=== PATIENT | female | born 1960 | race Caucasian/White ===

== ENCOUNTER → 2017-05-16 | Outpatient (CLI) | payer OTHER ==
[2017-05-16 18:24] LABS: ALT/SGPT 21 U/L (12-78); BLOOD UREA NITROGEN 12 mg/dl (7-18); BUN/CREATININE RATIO 15.3 (10-20); CALCIUM 8.8 mg/dl (8.5-10.1); CARBON DIOXIDE 29 mmol/L (21-32); CHLORIDE 107 mmol/L (98-107); CREATININE 0.81 mg/dl (0.60-1.20); GLUCOSE 112 mg/dl (70-99); SODIUM 139 mmol/L (136-145)
[2017-05-16 18:27] LABS: ALKALINE PHOSPHATASE 80 U/L (45-117); AST/SGOT 17 U/L (15-37); RHEUMATOID FACTOR 12.8 U/mL (0-15)
[2017-05-19 14:05] LABS: ANA TITER 1:40 TITER (<1:40)
== END | disposition home or self-care (01) ==
LOC: C.LABPVFM 11:23
PROVIDERS: ATTEND Family Medicine
DX: F11.20 Opioid dependence, uncomplicated (principal); M19.90 Unspecified osteoarthritis, unspecified site

== ENCOUNTER 2019-07-16 08:40 | Inpatient (IN) ==
--- OUTSIDE RECORDS SUMMARY | 2019-07-16 08:43 | External Medical Summary | Continuity of Care Document ---
:1960 Author Name Twyla Aguilera, Provider Address Unavailable Unavailable , Care Team Providers Name Role Phone Franchesca Lomeli Unavailable [email or web address] [place] Aguilera, Richar Unavailable [email or web address] Neli Aguilera, [email or web address] [place] Aguilera, RICHAR Unavailable Unavailable JR Willy HARDY, HOWARD Rodriguez Unavailable Unavailable Unavailable Unavailable Unavailable Problems Wrist drop (736.05) (M21.339) Palpitations (785.1) (R00.2) COPD exacerbation (491.21) (J44.1) Anxiety (300.00) (F41.9) COPD (chronic obstructive pulmonary disease) (496) (J44.9) Groin discomfort (789.09) (R10.30) Rheumatoid arthritis (714.0) (M06.9) Arthritis (716.90) (M19.90) Vitamin D deficiency (268.9) (E55.9) Wheezing (786.07) (R06.2) Cough (786.2) (R05) Need for hepatitis C screening test (V73.89) (Z11.59) Screening mammogram, encounter for (V76.12) (Z12.31) Screening for hyperlipidemia (V77.91) (Z13.220) Rash (782.1) (R21) Abnormal EKG (794.31) (R94.31) 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 Willy Quinteros Start: 31-Oct-2018 Quantity: 6 Refills: 0 predniSONE 20 MG Oral Tablet; TAKE 2 TABLETS DAILY WITH FOOD Willy Quinteros Start: 31-Oct-2018 Quantity: 10 Refills: 0 LORazepam 0.5 MG Oral Tablet; TAKE 1 TAB LET EVERY 4-6 HOURS NEEDED FOR ANXIETY Willy Quinteros Start: 31-Oct-2018 Quantity: 10 Refills: 0 Methadone HCl - 10 MG Oral Tablet; TAKE total of 95mgs maint anence dose Start: 12-Sep-2016 Refills: 0 Lisinopril 20 MG Oral Tablet; Take 1 tablet daily BondalaWilly wiseman i Start: 15-Oct-2015 Quantity: 1 90 Tablet Bottle Refills: 1 Combivent Respimat 20-100 MCG/ACT Inhala tion Aerosol Solution; 2 puffs daily as needed Willy Quinteros Start: 15-Oct-2015 Quantity: 1 4 GM Inhaler Refills: 3 Aspirin 81 MG TABS; TAKE 1 TABLET DAILY. NANCY Noble Start: 28-Jan-2016 Quantity: 90 Refills: 3 Procedures Procedures not documented Immunizations Influenza Comments:Declines 20 16 Family History Father Family history of lung cancer (V16.1) (Z80.1) Status: Active Family history of hypertension (V17.49) (Z82.49) Status: Act misael Family history of alcohol abuse (V61.41) (Z81.1) Status: Act misael Mother Family history of hypertension (V17.49) (Z82.49) Status: Act misael Family history of colon cancer (V16.0) (Z80.0) Status: Activ e Grandmother Family history of alcohol abuse (V61.41) (Z81.1) Status: Act misael uncle Family history of alcohol abuse (V61.41) (Z81.1) Status: Act misael Social History - Smoking Status Smoker. current status unknown Plan of Treatment Planned Observations Planned Goals not documented Results No Known Results Results not documented Encounters Appointment; Krystle Quinteros M.D. 31-Oct-2018 14:00 Encounter Diagnosis: Problem not documented Appointment; Krystle Quinteros M.D. 28-May-2018 14:45 Encounter Diagnosis: Problem not documented Appointment; Migdalia Goodrich M.D. 23-May-2018 8:40 Encounter Diagnosis: Problem not documented Appointment; Krystle Quinteros M.D. 18-Apr-2018 10:30 Encounter Diagnosis: Problem not documented Appointment; Richar Jacinto M.D. 08-Aug-2017 13:00 Encounter Diagnosis: Problem not documented
[2019-07-16] MEDS ORDERED: SODIUM CHLORIDE 0.9% 500 ML IV SCH (09:00)
[2019-07-16] MEDS ORDERED: ALBUT/IPRATROP 3MG/0.5MG NEB 3 ML VIAL NEB ONE (09:00)
[2019-07-16] MEDS ORDERED: ONDANSETRON INJ 2 MG/ML 2 ML VIAL IV STA (09:00)
[2019-07-16 09:32] LABS: Hematocrit (blood only) 43.1 % (37-47); Hemoglobin 14.7 g/dL (12.0-16.0); Mean Corpuscular Hemoglobin 30.9 pg (25-34); Mean Corpuscular Hgb Conc 34.1 g/dL (32-36); Mean Corpuscular Volume 90.5 fL (80-100); Mean Platelet Volume 9.7 fL (7.4-10.4); Platelet Count 227 K/uL (130-400); RDW Coefficient of Variation 13.4 % (11.5-14.5); Red Blood Count 4.76 M/uL (4.2-5.4); White Blood Count 22.17 K/uL (4.8-10.8)
--- NOTE | 2019-07-16 09:33 | XRay Report ---
XR chest 1V portable CLINICAL HISTORY: Weakness. Cough. Chest pain. COMPARISON STUDY: No previous studies for comparison. FINDINGS: Lung volumes are normal. There is no pneumothorax or pleural effusion. Left basilar airspac e opacity is present. There may be minimal left midlung opacity. Right lung is clear. Cardiac size is within normal limits. There is levoscoliosis of the thoracic spine. A 3.6 cm right paratracheal dens ity is noted. Patient is mildly rotated. IMPRESSION: 1. Left basilar opacity suggestive of pneumonia. PA and lateral chest radiographs in one month to ens ure resolution are recommended. 2. 3.6 cm right paratracheal density. This may be artifactual/related to patient rotation. However, t his should be assessed on subsequent chest radiograph to exclude mediastinal abnormality. Electronically signed by: Miguel Chavez M.D. 07/16/2019 9:31 AM
[2019-07-16 09:53] LABS: Basophils # (auto) 0.01 K/uL (0-0.2); Eosinophils # (auto) 0.01 K/uL (0-0.5); Immature Granulocytes # (auto) 0.08 K/uL (0.00-0.02); Immature Granulocytes % (auto) 0.4 %; Lymphocytes # (auto) 3.29 K/uL (1.2-3.4); Lymphocytes % (auto) 14.8 %; Monocytes # (auto) 1.86 K/uL (0.11-0.59); Monocytes % (auto) 8.4 %; Neutrophils # (auto) 16.92 K/uL (1.4-6.5); Neutrophils % (auto) 76.4 %
[2019-07-16 09:59] LABS: Alanine Aminotransferase 18 U/L (12-78); Albumin Level 3.7 gm/dl (3.4-5.0); Aspartate Aminotransferase 18 U/L (15-37); BUN Creatinine Ratio 14.5 (10-20); Blood Urea Nitrogen 11 mg/dl (7-18); Calcium 9.2 mg/dl (8.5-10.1); Carbon Dioxide 31 mmol/L (21-32); Chloride 101 mmol/L (98-107); Est GFR (African American) 97.3; Est GFR (Non-African American) 83.9; Glucose 131 mg/dl (70-99); Potassium 3.9 mmol/L (3.5-5.1); Sodium 137 mmol/L (136-145)
[2019-07-16 10:09] LABS: Albumin Globulin Ratio 0.9 (0.9-2); Alkaline Phosphatase 64 U/L (45-117); Bilirubin,Total 0.6 mg/dl (0.2-1); Creatine Kinase 89 U/L (26-192); Globulin 4.1 gm/dl (2.5-4.0); Thyroid Stimulating Hormone 0.378 uIu/ml (0.300-4.500); Total Protein 7.8 gm/dl (6.4-8.2); Troponin I < 0.015 ng/ml (0-0.045)
[2019-07-16] MEDS ORDERED: IOVERSOL 100ml IV PRN (10:47)
--- NOTE | 2019-07-16 10:55 | CT Scan Report ---
CT head/brain wo con CLINICAL HISTORY: 58 years-old Female presenting with Pt c/o headache, emesis. TECHNIQUE: Multidetector CT imaging of the head was performed without the use of intravenous contrast . IV contrast: None. One or more dose lowering techniques were used consistent with the principles of ALARA (as low as reasonably achievable), including automatic exposure control, mA or kV adjustment t o individual patient size, and/or use of iterative reconstruction. COMPARISON: None. CT DOSE (mGy.cm): The estimated cumulative dose is 614.27 mGy.cm. 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 Ventricles and sulci normal in size. No hemorrhage. Brain parenchyma normal in appearance with preser eagle calvert-white differentiation. No acute territorial infarct. No mass effect or midline shift. No ext ra-axial fluid collection. Paranasal sinuses and mastoid air cells clear. Calvarium intact. IMPRESSION: 1. No acute intracranial abnormality. Electronically signed by: Carlos Luciano M.D. 07/16/2019 10:53 AM
--- NOTE | 2019-07-16 11:12 | CT Scan Report ---
ABDOMEN AND PELVIS CT WITH IV CONTRAST CT DOSE: 356.06 mGy.cm HISTORY: Pt c/o emesis TECHNIQUE: Multiaxial CT images of the abdomen and pelvis were performed following the use of intrave nous contrast. A dose lowering technique was utilized adhering to the principles of ALARA. COMPARISON STUDY: None. FINDINGS: Patchy areas of consolidation and tree-in-bud opacity seen within the left lower lobe. Ther e are also patchy groundglass opacities within the right lung base. Findings likely represent a pneum onia could be due to aspiration. There is partial opacification of the left lower lobe bronchi. No pn eumoperitoneum. No pneumatosis. No suspicious lytic or blastic osseous lesions. Calcified periportal lymph nodes are noted. The liver, gallbladder, pancreas, and right adrenal gland are unremarkable. A 1.9 cm hypodense lesion within the spleen. This favors a benign lesion. No hydronephrosis. Punctate s tone within the right kidney. A 2.1 cm hypodense lesion within the upper pole of the right kidney. Th is does not clearly represent a simple cyst. Additional subcentimeter hypodense lesions within the ki dneys are technically too small to characterize. No retroperitoneal lymphadenopathy. Soft tissue and fat-containing 3.8 cm left adrenal gland mass. This is consistent with a myelolipoma. Calcified plaqu e within the normal caliber abdominal aorta. The bladder is unremarkable. No bowel wall thickening or obstruction. Normal appendix. IMPRESSION: 1. No bowel wall thickening or obstruction. 2. Normal appendix. 3. Patchy bibasilar densities most pronounced within the left lower lobe with partial opacification o f the left lower lobe bronchi. This is consistent with a pneumonia is likely secondary to aspiration. 4. Right-sided nephrolithiasis. No hydronephrosis. 5. A 2.1 cm exophytic hypodense lesion within the right kidney. This does not clearly represent a sim ple cyst by CT criteria. Consider follow-up nonemergent ultrasound for further evaluation. 6. A 3.8 cm left adrenal myelolipoma. Electronically signed by: Yosi Perez M.D. 07/16/2019 11:11 AM
[2019-07-16] MEDS ORDERED: LEVOFLOXACIN/D5W 750 MG/150 ML BAG IV STA (11:20)
[2019-07-16] MEDS ORDERED: AZTREONAM 2,000 MG in DEXTROSE 5% 100 ML IV STA (11:20)
[2019-07-16] MEDS ORDERED: ALBUTEROL HFA 8 GM INHALER INH ONE (11:26)
[2019-07-16] MEDS ORDERED: MAGNESIUM SULFATE / D5W 1 GM/100 ML BAG IV ONE (11:30)
[2019-07-16] MEDS ORDERED: methylPREDNISolone 60 MG in SYRINGE 1 ML IV STA (11:31)
[2019-07-16] MEDS ORDERED: IPRATROPIUM BROMIDE NEB SOLN 0.02% 2.5 ML VIAL INH PRN (12:19)
[2019-07-16] MEDS ORDERED: ALBUTEROL 0.083% NEBU SOLN 3 ML VIAL INH PRN (12:19)
[2019-07-16] MEDS ORDERED: ALUMINUM/MAGNESIUM SUSP 30 ML UDC PO PRN (12:25)
[2019-07-16] MEDS ORDERED: ACETAMINOPHEN 325 MG TAB PO PRN (12:25)
[2019-07-16] MEDS ORDERED: MAGNESIUM HYDROXIDE SUSP 30 ML UDC PO PRN (12:25)
[2019-07-16] MEDS ORDERED: POLYETHYLENE (MIRALAX) 17 GM PACK PO PRN (12:25)
[2019-07-16] MEDS ORDERED: ZOLPIDEM TARTRATE 5 MG TAB PO PRN (12:25)
[2019-07-16] MEDS ORDERED: FAMOTIDINE 20MG/5ML IV PUSH IV STA (12:25)
[2019-07-16] MEDS ORDERED: AZITHROMYCIN 500 MG in DEXTROSE 5% 250 ML IV SCH (12:30)
[2019-07-16] MEDS ORDERED: PROMETHAZINE HCL 6.25 MG in SODIUM CHLORIDE 0.9% 50 ML IV PRN (12:31)
[2019-07-16] MEDS ORDERED: IPRATROPIUM BROMIDE/ALBUTEROL respimat INH INH PRN (12:33)
[2019-07-16] MEDS ORDERED: LORazepam 0.5 MG TAB PO PRN (12:40)
--- NOTE | 2019-07-16 12:47 | History & Physical Report ---
Date of Service July 16, 2019 Assessment & Plan (1) Acute respiratory failure with hypoxia: Plan Admit patient to telemetry Start patient on bronchodilators, Xopenex/Atrovent 0.63 inhalation nebulizer 4 times daily Start patient on steroids, Solu-Medrol low-dose due to pneumonia, 20 mg IV every 8 hours Chest imaging reviewed, showed no active pneumonia but likely bacterial bronchitis EKG reviewed, no QTc prolongation, will start levofloxacin for pneumonia Add probiotic for C. difficile prevention Pulmonary consultation if no improvement as needed Pepcid for GI prophylaxis Heparin subcu for DVT prophylaxis Patient will need pulmonary function test in 6 weeks after resolution Incidental finding of 3.6 cm right paratracheal density, as per radiologist could be artifact but giving her prolonged smoking history we will order CT scan chest with contrast to better evaluate the mediastinum in a.m., at this point no clinical stigmata suspecting pulmonary embolism so will do mediastinum lymphadenopathy protocol rather than pulmonary embolism protocol Incidental finding of 2.1 cm exophytic hypodense lesion in right kidney does not appear to be a simple cyst, follow-up with an ultrasound for further evaluation is indicated as it might be a source of metastatic lesion mentioned above in the mediastinal 3.6 cm density Incidental finding of 3.8 cm left adrenal myelo lipoma We will order renal ultrasound to investigate the above mentioned abnormalities and CT chest with contrast in a.m. (2) COPD exacerbation: As above (3) Left lower lobe pneumonia: Levofloxacin 750 mg IV daily Follow-up QTC every 2 to 3 days Lactobacillus to prevent C. difficile Ordered urine Legionella Sputum culture Blood culture Influenza PCR, will not empirically treat flu at this point due to slightly different stigmata for flu infection, likely her leukocytosis (4) Tobacco abuse: Counseled regarding quitting, she is willing to quit (5) Essential hypertension: Started lisinopril 10 mg p.o. daily, although I doubt it will be sufficient to control her blood pressure Consider adjusting her home meds by adding possible Norvasc if blood pressure remains (6) Anxiety: Continue Ativan as needed anxiety History of Present Illness 58 years old female with past medical history of COPD not on home oxygen, rheumatoid arthritis, tobacco abuse and essential hypertension, also she had history of cervical cancer and the 1990s status post removal. She presented to the hospital today with productive cough with whitish and yellowish sputum x4 days. Associated with fever, nausea, vomiting. Patient vomited 3-4 times a day no hematemesis. Feeling tired fatigue, also has not runny nose. No one else sick in the family, denies any sick contact. In the ED she was found to have a white blood cell count of 22. Patient was advised to be admitted for pneumonia treatment as her chest x-ray showed left lower lobe pneumonia. Initially she wanted to go home but the moment she was taking off oxygen her O2 sat dropped to 80 on room air. Then she decided to stay. Primary Care Provider: Krystle Quinteros MD Allergies Allergy/AdvReac Type Severity Reaction Status Date / Time bee venom protein (honey bee) Allergy Swelling Unverified 07/16/19 09:34 of Lip/Tongue/Throat Penicillins Allergy Hives Unverified 07/16/19 09:34 Home Medications Home Medications Medication Instructions Recorded Confirmed Type ipratropium-albuterol [Combivent 2 puff INHALATION BID PRN 08/07/18 07/16/19 History Respimat] aspirin 325 mg PO DAILY 07/16/19 07/16/19 History lisinopril 10 mg PO DAILY 07/16/19 07/16/19 History Past Med/Surg History Medical History Von Willebrand disease Epistaxis (Acute) Social History Preferred Language: Tristanian Communication Ability: Effective Beliefs That Will Affect Care: None Current Living Situation: Alone Other Information That Helps Us Care for You: No Feels Safe at Home: Yes Safety Concerns: Feels Safe At This Time Smoking Status: Current every day smoker Tobacco Type: cigarettes ; Cigarettes Per Day: 20 ; Hx Alcohol Use: No Hx Substance Use: No Review of Systems Review of Systems: Review of system Constitutional: Positive for fever chills and fatigue Eyes: no blurring of vision / no eye pain / no discharge / no redness ENT: no hearing loss / no epistaxis /no swallowing problems Respiratory: Positive for productive cough and wheezing and shortness of breath Cardiovascular: no Chest pain / no lower extremity edema / no palpitation Abdomen: no pain / no nausea / no vomiting / no constipation Musculoskeletal: no joint pain / no muscle pain / no joint swelling Genitourinary: no dysuria / no incontinence / no urinary retention Neurologic: no focal weakness / no numbness/tingling / no ataxia Psychiatric: no depression symptoms / no anxiety / no insomnia Endocrine: no excessive thirst / no excessive urination Hematologic: no abnormal bleeding / no bruising / no LN swelling Skin: No rash / no pallor Physical Exam Physical Exam: Physical examination General patient appears to be comfortable, not in acute distress HEENT: Atraumatic , normocephalic /no jaundice /no pallor /anicteric /no dry mucous membrane /normal external ear inspection Neck: Supple /no swelling /central trach Heart: S1/S2 normal/regular rate and rhythm/no gallop /no rub /no murmur Lungs: Decreased air entry bilaterally, generalized wheezing both lung brower, scattered rhonchi, no chest wall tenderness Abdomen: Soft/nontender/no guarding/no rebound/no organomegaly/no pulsatile mass Musculoskeletal: No swelling/no edema/no tenderness/normal range of motion Neuro exam: Awake alert oriented 3/cranial nerves II through XII appear to be intact/sensation intact/moves all extremities/no abnormal movements Psychiatric evaluation: No depressed mood/normal affect Skin: No rash on exposed skin area/no erythema Extremity: Normal pulse/no pitting edema/no clubbing or cyanosis Endocrine/lymphatic: No obvious lymphadenopathy /no lymphedema Results & Data Vital Signs (Past 12 Hours) Vital Signs Temp Pulse Pulse Resp BP BP Pulse Ox 07/16/19 12:25 87 20 93 07/16/19 11:35 89 L 07/16/19 11:30 81 L 07/16/19 11:29 90 16 155/78 H 87 L 07/16/19 10:30 86 20 170/85 H 98 07/16/19 09:42 22 96 07/16/19 08:42 37.0 C 80 20 189/97 H 85 L Code Status & VTE Plan VTE Prophylaxis Plan VTE Prophylaxis will be ordered: Yes PG Care Time/CCT Total # of Minutes Spent Total Time Spent with Patient: 35 minutes total time spent is greater than 50% in coordination of care (as documented) at patient's floor/unit and/or counseling patient/family discussion of care with nursing staff
[2019-07-16] MEDS ORDERED: OPTIRAY 320 125ml IV PRN (14:32)
--- NOTE | 2019-07-16 14:54 | CT Scan Report ---
CT angio chest PE protocol CLINICAL HISTORY: 58 years-old Female presenting with cough, atypical chest pain, weakness, clinical concern for pulmonary embolus. TECHNIQUE: Multidetector CT angiography of the chest was performed after administration of intravenou s contrast. 3-D volumetric and/or maximum intensity projection (MIP) images were subsequently reconst ructed for review. IV contrast: 120 mL of Optiray 320. One or more dose lowering techniques were used consistent with the principles of ALARA (as low as reasonably achievable), including automatic expos ure control, mA or kV adjustment to individual patient size, and/or use of iterative reconstruction. COMPARISON: Chest x-ray performed earlier the same day. CT DOSE (mGy.cm): The estimated cumulative dose is 293.08 mGy.cm. 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 Pulmonary vasculature: The study is adequate for assessment of the pulmonary vascular tree. No filling defect within the pul monary arteries to suggest embolus. Abnormal size of the main pulmonary artery. No flattening of the interventricular septum. No intracardiac filling defect. No reflux of contrast into the hepatic veins . Remaining chest: Soft tissues: Normal thyroid and thoracic inlet. Small bilateral hilar lymph nodes are suspected like ly reactive. Atherosclerosis of the aorta. Mild multichamber enlargement of the heart. Coronary arter y calcification. No pericardial or pleural effusion. Cyst suspected at the upper pole of the right ki dney. Low-density lesion in the spleen may represent a hemangioma or lymphangioma. Lungs and airways: No pneumothorax. Segmental and subsegmental debris in the lower lobe airways with bronchial wall thickening. Mild upper lobe predominant centrilobular emphysema. Extensive peribroncho vascular consolidation in the left lower lobe and to a minimal extent in the right lower lobe. Musculoskeletal: Degenerative changes of the spine. IMPRESSION: 1. Extensive bronchial debris and bronchial wall thickening in the lower lobes with peribronchovascu lar consolidation in the lower lobes, left greater than right. Findings highly concerning for aspirat ion and aspiration pneumonitis. Infection is not excluded. 2. Reactive bilateral hilar lymph nodes. 3. Mild cardiomegaly. 4. No acute pulmonary embolus. Electronically signed by: Carlos Luciano M.D. 07/16/2019 2:52 PM
[2019-07-16] MEDS ORDERED: PATIENT'S HEIGHT AND/OR WEIGHT NEEDED SCH (15:00)
[2019-07-16 15:08] LABS: Influenza A virus by PCR Neg for Influ A (Neg); Influenza B virus by PCR Neg for Influ B (Neg)
[2019-07-16] MEDS: D5W AND NSS 1,000 ML IV SCH (15:27)
[2019-07-16] MEDS: LACTOBACILLUS ACIDOPHILUS 1 GM PACK PO SCH (15:38)
--- NOTE | 2019-07-16 16:22 | Ultrasound Report ---
EXAMINATION: RENAL ULTRASOUND CLINICAL HISTORY: Complex right renal cyst COMPARISON STUDY: CT scan dated 07/16/2019 FINDINGS: The right kidney measures 11.8 cm. The left kidney measures 11.3 cm. There is no evidence of hydronephrosis. There is a minimally complex upper pole right renal cyst measuring 24 mm containi ng a single septation. Incidental note is made of a 2 cm splenic cyst. No bladder abnormalities are visualized. Bilateral ureteral jets were visualized. IMPRESSION : 1. Mildly complex 24 mm upper pole right renal cyst containing a single septation 2. No evidence of hydronephrosis 3. 2 cm splenic cyst Electronically signed by: Mark Riggs M.D. 07/16/2019 4:21 PM
[2019-07-16] MEDS ORDERED: Nursing to Pharmacy Communication ONE (16:32)
[2019-07-16] MEDS ORDERED: ENOXAPARIN INJ 40 MG/0.4 ML SYR SQ SCH (21:00)
[2019-07-16] MEDS: methylPREDNISolone 20 MG in SYRINGE 0 ML IV SCH (21:42)
[2019-07-17] MEDS: methylPREDNISolone 20 MG in SYRINGE 0 ML IV SCH (03:30)
[2019-07-17] MEDS ORDERED: lisinopriL 10 MG TAB PO SCH (09:00)
[2019-07-17] MEDS ORDERED: ASPIRIN 325 MG ECTAB PO SCH (09:00)
[2019-07-17] MEDS: LACTOBACILLUS ACIDOPHILUS 1 GM PACK PO SCH ×3 (09:35→14:19)
[2019-07-17] MEDS: ALBUT/IPRATROP 3MG/0.5MG NEB 3 ML VIAL NEB SCH ×3 (11:04→19:25)
[2019-07-17] MEDS ORDERED: METHADONE ORAL SOLN 2 MG/ML PO SCH ×2 (11:30→12:00)
[2019-07-17] MEDS ORDERED: predniSONE 20 MG TAB PO SCH (11:30)
[2019-07-17] MEDS ORDERED: METHADONE PO SCH (12:00)
[2019-07-17] MEDS: CLINDAMYCIN HCL 150 MG CAP PO SCH ×2 (12:13→18:39)
[2019-07-17] MEDS ORDERED: LEVOFLOXACIN/D5W 750 MG/150 ML BAG IV SCH (13:00)
[2019-07-17] MEDS: D5W AND NSS 1,000 ML IV SCH (14:18)
[2019-07-17] MEDS ORDERED: BUDESONIDE/FORMOTEROL FUMARATE 160/4.5 60 PUFFS/INHALER INH SCH (16:15)
[2019-07-17] MEDS ORDERED: LACTOBACILLUS ACIDOPHILUS (FLORANEX) TAB PO SCH (17:00)
--- NOTE | 2019-07-17 17:20 | Discharge Summary ---
Date of Service July 17, 2019 Admission HPI Per Admitting Provider 58 years old female with past medical history of COPD not on home oxygen, rheumatoid arthritis, tobacco abuse and essential hypertension, also she had history of cervical cancer and the 1990s status post removal. She presented to the hospital today with productive cough with whitish and yellowish sputum x4 days. Associated with fever, nausea, vomiting. Patient vomited 3-4 times a day no hematemesis. Feeling tired fatigue, also has not runny nose. No one else sick in the family, denies any sick contact. In the ED she was found to have a white blood cell count of 22. Patient was advised to be admitted for pneumonia treatment as her chest x-ray showed left lower lobe pneumonia. Initially she wanted to go home but the moment she was taking off oxygen her O2 sat dropped to 80 on room air. Then she decided to stay. Primary Care Provider: Krystle Quinteros MD Admission Exam Per Admitting Provider General patient appears to be comfortable, not in acute distress HEENT: Atraumatic , normocephalic /no jaundice /no pallor /anicteric /no dry mucous membrane /normal external ear inspection Neck: Supple /no swelling /central trach Heart: S1/S2 normal/regular rate and rhythm/no gallop /no rub /no murmur Lungs: Decreased air entry bilaterally, generalized wheezing both lung brower, scattered rhonchi, no chest wall tenderness Abdomen: Soft/nontender/no guarding/no rebound/no organomegaly/no pulsatile mass Musculoskeletal: No swelling/no edema/no tenderness/normal range of motion Neuro exam: Awake alert oriented 3/cranial nerves II through XII appear to be intact/sensation intact/moves all extremities/no abnormal movements Psychiatric evaluation: No depressed mood/normal affect Skin: No rash on exposed skin area/no erythema Extremity: Normal pulse/no pitting edema/no clubbing or cyanosis Endocrine/lymphatic: No obvious lymphadenopathy /no lymphedema Principal Diagnosis COPD exacerbation Aspiration pneumonia Complex right renal cyst Left adrenal myelolipoma Hypertension Discharge Exam Constitutional well developed and + malnourished; no acute distress Eyes PERRL, conjunctivae normal, anicteric sclerae ENMT external ear and nose normal, oropharynx normal Neck normal visual inspection and trachea midline Respiratory normal respiratory effort and + cough; no respiratory distress, no labored breathing, no retractions and does not use accessory muscles Auscultation: + crackles (left lower lobe); no wheezes Gastrointestinal (Abdomen) normal bowel sounds, soft, nontender, no hepatosplenomegaly Musculoskeletal no cyanosis or clubbing, extremities motor strength 5/5 Skin no rashes, warm and dry Neurologic moves all extremities and awake; no focal motor deficits Motor/Sensory: no sensory deficit Psychiatric A+Ox3, euthymic affect Discharge Data Allergies Allergy/AdvReac Type Severity Reaction Status Date / Time bee venom protein (honey bee) Allergy Swelling Unverified 08/01/19 11:35 of Lip/Tongue/Throat Penicillins Allergy Hives Unverified 08/01/19 11:35 Consultations 07/16/19 11:30 ED Decision to Admit Stat Ordered Studies 07/16/19 09:00 CT abd pelvis IV con only Stat CT head/brain wo con Stat 07/16/19 11:36 CT angio chest PE protocol Stat 07/16/19 14:54 US renal/blad retro comp Routine Hospital Course (1) Acute respiratory failure with hypoxia: Patient admitted overnight due to below conditions The following day she was on room air maintaining saturations. Feels well enough for discharge. You were diagnosed with COPD exacerbation and aspiration pneumonia secondary to vomiting. Treated with antibiotics, steroids and nebulizer treatment. Continue prednisone for total 5 days as prescribed. Clindamycin (antibiotic) to cover for aspiration pneumonia. , wash your mouth out after this medication. (2) Left lower lobe pneumonia: CT suspicious for aspiration pneumonia which fits with her history of vomiting due to probable viral gastroenteritis which has now resolved Will treat with clindamycin due to penicillin allergy (3) COPD exacerbation: No wheezing on exam No prior maintenance inhalers. No exacerbations in last 12 months Prednisone prescribed for 5 days Recommend taking combivent inhaler four times a day for the next 2-3 days then as needed. Patient prescribed Symbicort inhaler 2 puffs twice a day at least for the next 5 days. Maintenance inhaler to be determined as outpatient (4) Tobacco abuse: Counseled regarding quitting, she is willing to quit (5) Essential hypertension: Started lisinopril to 20mg daily due to elevated blood pressure. Continues to be elevated but no need for continued inpatient stay (6) Anxiety: Continue Ativan as needed anxiety Total Time Total Time Spent Total Time Spent (In Minutes): 40 Total Time Includes: Examination of the Patient, Discharge Planning and Medication Reconciliation Discharge Plan Discharge Items Patient Disposition: Home - Self-Care Reason For Visit: ACUTE HYPOXIC RESPIRATORY FAILURE Discharge Diagnosis: COPD exacerbation Aspiration pneumonia Complex right renal cyst Left adrenal myelolipoma Hypertension Condition on Discharge: Fair Activity: Resume your previous activity Non-emergency contact: Primary Care Provider Call non-emergency contact if: you have any medication questions and your symptoms worsen Follow-up/Referrals: Krystle Quinteros MD [Primary Care Provider] - Diet: Regular Addtl Attending Provider Instructions: You were diagnosed with COPD exacerbation and aspiration pneumonia secondary to vomiting. Treated with antibiotics, steroids and nebulizer treatment. Continue prednisone for total 5 days as prescribed. Clindamycin (antibiotic) to cover for aspiration pneumonia. Recommend taking combivent inhaler four times a day for the next 2-3 days then as needed. Take Symbicort 2 puffs twice a day for the next 5 days, wash your mouth out after this medication. Lisinopril was increased from 10->20mg daily due to elevated blood pressure. Follow up with your PCP in the next 1-2 weeks. Pending Studies at Discharge: No Stand-Alone Forms: My [facility], Opioid Pain Management Medications and DC Order Prescriptions: New aspirin 81 mg tablet,delayed release (DR/EC) 81 mg PO DAILY Qty: 30 RF: 0 Changed Combivent Respimat 20-100 mcg/actuation Mist 2 puff INHALATION QID PRN (Reason: Shortness Of Breath Or Wheezing) Qty: 0 RF: 0 Discontinued aspirin 325 mg Tablet 325 mg PO DAILY RF: 0 lisinopril 10 mg Tablet 10 mg PO DAILY RF: 0 No Action ondansetron HCl [Zofran] 4 mg tablet 4 mg PO QID PRN (Reason: nausea and vomiting) Qty: 10 RF: 0 lisinopril 10 mg tablet 20 mg PO DAILY Qty: 30 RF: 2 lorazepam 0.5 mg tablet 0.5 mg PO Q4H PRN (Reason: anxiety) RF: 0 methadone 40 mg tablet,soluble 95 mg PO DAILY RF: 0 albuterol sulfate [ProAir HFA] 90 mcg/actuation HFA aerosol inhaler 1 puffs INH Q6H PRN (Reason: shortness of breath or wheezing) Qty: 6.7 RF: 0 amlodipine [Norvasc] 5 mg Tablet 10 mg PO QAM Qty: 30 RF: 0 famotidine 20 mg Tablet 20 mg PO QAM Qty: 10 RF: 0 Floranex 100 million cell Granules In Packet 1 g PO TIDM Qty: 90 RF: 0 Discharge Orders: Discharge Order (Routine); Ordered 07/17/19 Ordered By: Fan Bahena Admission Data Admit Date/Time: 07/16/19 12:24 Attending Provider: Fan Bahena Admit Provider: Alessandra Tomlin Primary Care Provider: Krystle Quinteros Other Providers: Alessandra Tomlin Other Interventions: Discharge Summary Assessment (RN) Last Done: 07/17/19 18:20 DC Date/Time DO NOT enter until pt leaves facility: 07/17/19 20:30
--- NOTE | 2019-07-17 17:25 | Emergency Department Note ---
Entered by Soheila Taylor acting as a scribe for Gm Win MD History of Present Illness General Chief complaint: Vomiting Stated complaint: VOMITING X2 DAYS, COUGH, FEVER Time Seen by Provider: 07/16/19 08:46 Source: patient History of Present Illness Provider complaint: cough and fever Onset (ago): day(s) 4 Location: head and chest Pain Consistency: + intermittent Maximum Pain Intensity: 7 Relieved By: + none Exacerbated By: + none Associated symptoms: + denies other symptoms, + cough, + headaches and + nause a/vomiting The patient is a 58 y/o female who presents to the emergency department for e valuation of intermittent cough and vomiting that began 4 days ago. The patient states that she has nausea, vomiting, cough with opaque sputum, and headache. She reports she is vomiting 5-6 time a day and has been unable to keep anything down resulting in dehydration with the most recent episode being 6 hours ago. The patient notes she has had a decrease in energy since prior to these symptoms, and reports she has a history of COPD. She denies diarrhea and any other symptoms. Home Medications Home Medications Medication Instructions Recorded Confirmed Type Combivent Respimat 2 puff INHALATION QID PRN #0 g 07/17/19 07/16/19 Rx aspirin 81 mg PO DAILY #30 tab 07/17/19 Rx budesonide-formoterol [Symbicort] 2 puff INHALATION BID PRN #6 gm 07/17/19 Rx clindamycin HCl 600 mg PO BID 6 Days #24 cap 07/17/19 Rx lisinopril 20 mg PO DAILY #0 tab 07/17/19 07/16/19 Rx methadone 95 mg 07/17/19 History prednisone 40 mg PO QAM #4 tab 07/17/19 Rx Allergies Allergy/AdvReac Type Severity Reaction Status Date / Time bee venom protein (honey bee) Allergy Swelling Unverified 07/16/19 09:34 of Lip/Tongue/Throat Penicillins Allergy Hives Unverified 07/16/19 09:34 Past Med/Surg History Medical History Von Willebrand disease Epistaxis (Acute) Social History Preferred Language: Japanese Communication Ability: Effective Beliefs That Will Affect Care: None Current Living Situation: Alone Feels Safe at Home: Yes Smoking Status: Current every day smoker Tobacco Type: cigarettes ; Cigarettes Per Day: 20 ; Hx Alcohol Use: No Hx Substance Use: No Review of Systems See HPI for pertinent positives & negatives. and A total of 10 systems reviewed and were otherwise negative Physical Exam Vital Signs Vital Signs - 24 hr 07/16/19 08:42 07/16/19 09:42 07/16/19 10:30 Temperature 98.6 F Temperature Source Oral Sepsis Recent Fever Within 48 Hours No Sepsis Action Taken by Nursing No Action Required Pulse Rate 80 Pulse Rate [Apical] 86 Respiratory Rate 20 22 20 Respiratory Effort / Characteristics Non-Labored Non-Labored Spontaneous Respiratory Depth Normal Blood Pressure 189/97 H Blood Pressure [Right Arm] 170/85 H Blood Pressure Mean 127 Blood Pressure Mean [Right Arm] 113 Pulse Oximetry 85 L 96 98 Oxygen Delivery Method Room Air Room Air Nebulizer 07/16/19 11:29 Temperature Temperature Source Sepsis Recent Fever Within 48 Hours Sepsis Action Taken by Nursing Pulse Rate Pulse Rate [Apical] 90 Respiratory Rate 16 Respiratory Effort / Characteristics Respiratory Depth Blood Pressure Blood Pressure [Right Arm] 155/78 H Blood Pressure Mean Blood Pressure Mean [Right Arm] 103 Pulse Oximetry 87 L Oxygen Delivery Method Room Air GENERAL: Awake, alert, well-appearing, in no acute distress HENT: Normocephalic, atraumatic. Oropharynx unremarkable. EYES: Normal conjunctiva. Sclera non-icteric. NECK: Supple. No nuchal rigidity. FROM. No JVD. RESPIRATORY: Bilateral wheezing present in all lung brower. CARDIAC: Regular rate, normal rhythm. Extremities warm and well perfused. Pulses equal. ABDOMEN: Soft, non-distended. No tenderness to palpation. No rebound or guarding. No masses. RECTAL: Deferred. MUSCULOSKELETAL: Chest examination reveals no tenderness. The back is symmetrical on inspection without obvious abnormality. There is no CVA tenderness to palpation. No joint edema. LOWER EXTREMITIES: Calves are equal size bilaterally and non-tender. No edema. No discoloration. NEURO: Normal sensorium. No sensory or motor deficits noted. SKIN: No rash or jaundice noted. Course 0847: Past medical records reviewed. The patient was evaluated in room B04. A complete history and physical exam was performed. 1126: The patient is interested in returning home. 1131: The patients O2 sat is low and she told the nurse she would like to stay. 1135: I [place] Guy Hernandez[place] [facility] [place] He will evaluate for further management. Administered Medications Discontinued Medications Acetaminophen (Tylenol) 650 mg PO Q4H PRN PRN Reason: Pain or Fever Stop: 08/15/19 12:24 Last Admin: 07/16/19 15:38 Dose: 650 mg Documented by: [id number] Albuterol (Duoneb) 12 ml NEB ONE ONE Stop: 07/16/19 09:01 Last Admin: 07/16/19 09:39 Dose: 12 ml Documented by: [id number] Albuterol (Ventolin Hfa) 2 puffs INH NOW ONE Stop: 07/16/19 11:27 Last Admin: 07/16/19 11:37 Dose: 2 puffs Documented by: [id number] Albuterol (Duoneb) 3 ml NEB Q4R BALDOMERO Stop: 08/16/19 10:59 Last Admin: 07/17/19 19:25 Dose: Not Given Documented by: [id number] Admin: 07/17/19 13:59 Dose: Not Given Documented by: [id number] Admin: 07/17/19 11:04 Dose: 3 ml Documented by: [id number] Aspirin (Ecotrin) 325 mg PO DAILY BALDOMERO Stop: 08/16/19 08:59 Last Admin: 07/17/19 09:35 Dose: 325 mg Documented by: [id number] Budesonide/Formoterol Fumarate (Symbicort 160mcg/4.5mcg) 2 puffs INH BID BALDOMERO Stop: 08/16/19 16:14 Last Admin: 07/17/19 18:39 Dose: 2 puffs Documented by: [id number] Clindamycin HCl (Cleocin) 450 mg PO Q8 BALDOMERO Stop: 07/24/19 10:59 Last Admin: 07/17/19 18:39 Dose: 450 mg Documented by: [id number] Admin: 07/17/19 12:13 Dose: 450 mg Documented by: [id number] Enoxaparin Sodium (Lovenox) 40 mg SQ Q24H BALDOMERO Stop: 08/15/19 20:59 Last Admin: 07/16/19 21:42 Dose: 40 mg Documented by: [id number] Famotidine (Pepcid 20mg Iv Push) 20 mg IV ONE STA Stop: 07/16/19 12:26 Last Admin: 07/16/19 14:00 Dose: 20 mg Documented by: [id number] Sodium Chloride (Nss) 500 mls @ 999 mls/hr IV .Q31M BALDOMERO Stop: 07/16/19 09:30 Last Infusion: 07/16/19 10:06 Dose: 0 mls/hr Documented by: [id number] Admin: 07/16/19 09:37 Dose: 999 mls/hr Documented by: [id number] Aztreonam 2,000 mg/ Dextrose 110 mls @ 100 mls/hr IV NOW STA; Protocol Stop: 07/16/19 12:25 Last Infusion: 07/16/19 13:24 Dose: 0 mls/hr Documented by: [id number] Admin: 07/16/19 12:16 Dose: 100 mls/hr Documented by: [id number] Levofloxacin/Dextrose (Levaquin/D5w) 750 mg in 150 mls @ 100 mls/hr IV NOW STA Stop: 07/16/19 12:49 Last Infusion: 07/16/19 15:39 Dose: 0 mls/hr Documented by: [id number] Infusion: 07/16/19 15:28 Dose: 100 mls/hr Documented by: [id number] Infusion: 07/16/19 15:27 Dose: 0 mls/hr Documented by: [id number] Admin: 07/16/19 14:00 Dose: 100 mls/hr Documented by: [id number] Magnesium Sulfate/Dextrose (Magnesium Sulfate / D5w) 1 gm in 100 mls @ 100 mls/hr IV ONE ONE Stop: 07/16/19 12:29 Last Infusion: 07/16/19 13:24 Dose: 0 mls/hr Documented by: [id number] Admin: 07/16/19 12:21 Dose: 100 mls/hr Documented by: [id number] Methylprednisolone 60 mg/ (Syringe) 1.96 mls @ 1.5 mls/min IV NOW STA Stop: 07/16/19 11:32 Last Admin: 07/16/19 12:21 Dose: Not Given Documented by: [id number] Dextrose/Sodium Chloride (D5w And Nss) 1,000 mls @ 50 mls/hr IV .Q20H [facility] [place] Stop: 08/15/19 13:59 Last Admin: 07/17/19 14:18 Dose: Not Given Documented by: [id number] Infusion: 07/17/19 11:30 Dose: 0 mls/hr Documented by: [id number] Admin: 07/16/19 15:27 Dose: 50 mls/hr Documented by: [id number] Methylprednisolone 20 mg/ (Syringe) 0.32 mls @ 1.5 mls/min IV Q8H BALDOMERO Stop: 08/15/19 19:59 Last Admin: 07/17/19 03:30 Dose: 1.5 mls/min Documented by: [id number] Admin: 07/16/19 21:42 Dose: 1.5 mls/min Documented by: [id number] Ioversol (Optiray 320 100ml) 94 ml IV ONCE PRN PRN Reason: Interaction Checking Stop: 07/20/19 10:46 Last Admin: 07/16/19 10:47 Dose: 94 ml Documented by: [id number] Ioversol (Optiray 320 125ml) 120 ml IV ONCE PRN PRN Reason: Interaction Checking Stop: 07/20/19 14:31 Last Admin: 07/16/19 14:32 Dose: 120 ml Documented by: [id number] Lactobacillus Acidophilus (Floranex Granules/Powder Packet) 1 gm PO TIDM BALDOMERO Stop: 08/15/19 16:59 Last Admin: 07/17/19 14:19 Dose: Not Given Documented by: [id number] Admin: 07/17/19 09:35 Dose: 1 gm Documented by: [id number] Admin: 07/16/19 15:38 Dose: 1 gm Documented by: [id number] Lisinopril (Zestril) 10 mg PO DAILY BALDOMERO Stop: 08/16/19 08:59 Last Admin: 07/17/19 09:35 Dose: 10 mg Documented by: [id number] Lorazepam (Ativan) 0.5 mg PO BID PRN PRN Reason: Anxiety Stop: 08/15/19 12:39 Last Admin: 07/16/19 21:49 Dose: 0.5 mg Documented by: [id number] Methadone HCl (Methadone Hcl) 95 mg PO DAILY [facility] [place] Stop: 07/31/19 11:59 Last Admin: 07/17/19 11:23 Dose: 95 mg Documented by: [id number] Methylprednisolone (Solumedrol) Confirm Administered Dose 80 mg .ROUTE .STK-MED ONE Stop: 07/16/19 12:20 Last Admin: 07/16/19 12:21 Dose: 60 mg Documented by: [id number] Miscellaneous (Patient's Height And/Or Weight Needed) 1 ea N/A Q30M BALDOMERO Stop: 07/16/19 18:31 Last Admin: 07/16/19 16:26 Dose: 1 ea Documented by: [id number] Methadone - Patient' (s Own Controlled Med) 1 ea PO DAILY BALDOMERO; Protocol Stop: 07/31/19 11:59 Last Admin: 07/17/19 14:18 Dose: Not Given Documented by: [id number] Ondansetron HCl (Zofran) 4 mg IV NOW STA Stop: 07/16/19 09:01 Last Admin: 07/16/19 09:36 Dose: 4 mg Documented by: [id number] Prednisone (Prednisone) 40 mg PO QAM BALDOMERO Stop: 08/16/19 11:29 Last Admin: 07/17/19 12:13 Dose: 40 mg Documented by: [id number] Medical Decision Making Differential Diagnosis Differential diagnosis: Etiologies such as infections, reactive airway disease, COPD, pneumonia, pleural effusion, pulmonary edema, ARDS, pneumothorax, CHF, cardiac ischemia, cardiac tamponade, dysrhythmia, anemia, pulmonary embolism, musculoskeletal, gastrointestinal process, as well as others were entertained. Medical Records Attestation: I reviewed the patient's medical records. Home Medications Current Medication List: was personally reviewed by me Laboratory Data Attestation: I reviewed the patient's lab results. Result diagrams: 07/16/19 09:20 07/16/19 09:20 Lab Results 07/16/19 07/16/19 Range/Units 09:20 09:20 WBC 22.17 H (4.8-10.8) K/uL RBC 4.76 (4.2-5.4) M/uL Hgb 14.7 (12.0-16.0) g/dL Hct 43.1 (37-47) % MCV 90.5 (80-100) fL MCH 30.9 (25-34) pg MCHC 34.1 (32-36) g/dL RDW Std Deviation 44.0 (36.4-46.3) fL RDW Coeff of [place] 13.4 (11.5-14.5) % Plt Count 227 (130-400) K/uL MPV 9.7 (7.4-10.4) fL Immature Gran % (Auto) 0.4 % Neut % (Auto) 76.4 % Lymph % (Auto) 14.8 % [place] % (Auto) 8.4 % Eos % (Auto) 0.0 % Baso % (Auto) 0.0 % Immature Gran # (Auto) 0.08 H (0.00-0.02) K/uL Neut # (Auto) 16.92 H (1.4-6.5) K/uL Lymph # (Auto) 3.29 (1.2-3.4) K/uL [place] # (Auto) 1.86 H (0.11-0.59) K/uL Eos # (Auto) 0.01 (0-0.5) K/uL Baso # (Auto) 0.01 (0-0.2) K/uL Sodium 137 (136-145) mmol/L Potassium 3.9 (3.5-5.1) mmol/L Chloride 101 (98-107) mmol/L Carbon Dioxide 31 (21-32) mmol/L Anion Gap 6.0 (3-11) BUN 11 (7-18) mg/dl Creatinine 0.77 (0.6-1.2) mg/dl Est Cr Clr Drug Dosing Not Reportable Est GFR ( Amer) 97.3 Est GFR (Non-Af Amer) 83.9 BUN/Creatinine Ratio 14.5 (10-20) Glucose 131 H (70-99) mg/dl Calcium 9.2 (8.5-10.1) mg/dl Total Bilirubin 0.6 (0.2-1) mg/dl AST 18 (15-37) U/L ALT 18 (12-78) U/L Alkaline Phosphatase 64 (45-117) U/L Total Creatine Kinase 89 (26-192) U/L Troponin I < 0.015 (0-0.045) ng/ml Total Protein 7.8 (6.4-8.2) gm/dl Albumin 3.7 (3.4-5.0) gm/dl Globulin 4.1 H (2.5-4.0) gm/dl Albumin/Globulin Ratio 0.9 (0.9-2) TSH 0.378 (0.300-4.500) uIu/ml Imaging Data Radiologist's Impression: Radiology results as stated below per my review and the radiologist's interpretation: ABDOMEN AND PELVIS CT WITH IV CONTRAST CT DOSE: 356.06 mGy.cm HISTORY: Pt c/o emesis TECHNIQUE: Multiaxial CT images of the abdomen and pelvis were performed following the use of intravenous contrast. A dose lowering technique was utilized adhering to the principles of ALARA. COMPARISON STUDY: None. FINDINGS: Patchy areas of consolidation and tree-in-bud opacity seen within the left lower lobe. There are also patchy groundglass opacities within the right lung base. Findings likely represent a pneumonia could be due to aspiration. There is partial opacification of the left lower lobe bronchi. No pneumoperitoneum. No pneumatosis. No suspicious lytic or blastic osseous lesions. Calcified periportal lymph nodes are noted. The liver, gallbladder, pancreas, and right adrenal gland are unremarkable. A 1.9 cm hypodense lesion within the spleen. This favors a benign lesion. No hydronephrosis. Punctate stone within the right kidney. A 2.1 cm hypodense lesion within the upper pole of the right kidney. This does not clearly represent a simple cyst. Additional subcentimeter hypodense lesions within the kidneys are technically too small to characterize. No retroperitoneal lymphadenopathy. Soft tissue and fat-containing 3.8 cm left adrenal gland mass. This is consistent with a myelolipoma. Calcified plaque within the normal caliber abdominal aorta. The bladder is unremarkable. No bowel wall thickening or obstruction. Normal appendix. IMPRESSION: 1. No bowel wall thickening or obstruction. 2. Normal appendix. 3. Patchy bibasilar densities most pronounced within the left lower lobe with partial opacification of the left lower lobe bronchi. This is consistent with a pneumonia is likely secondary to aspiration. 4. Right-sided nephrolithiasis. No hydronephrosis. 5. A 2.1 cm exophytic hypodense lesion within the right kidney. This does not clearly represent a simple cyst by CT criteria. Consider follow-up nonemergent ultrasound for further evaluation. 6. A 3.8 cm left adrenal myelolipoma. Electronically signed by: Yosi Perez M.D. 07/16/2019 11:[address] head/brain wo con CLINICAL HISTORY: 58 years-old Female presenting with Pt c/o headache, emesis. TECHNIQUE: Multidetector CT imaging of the head was performed without the use of intravenous contrast. IV contrast: None. One or more dose lowering techniques were used consistent with the principles of ALARA (as low as reasonably achievable), including automatic exposure control, mA or kV adjustment to individual patient size, and/or use of iterative reconstruction. COMPARISON: None. CT DOSE (mGy.cm): The estimated cumulative dose is 614.27 mGy.cm. FINDINGS: Fisher Hand Line topogram: Unremarkable. Ventricles and sulci normal in size. No hemorrhage. Brain parenchyma normal in appearance with preserved calvert-white differentiation. No acute territorial infarct. No mass effect or midline shift. No extra-axial fluid collection. Paranasal sinuses and mastoid air cells clear. Calvarium intact. IMPRESSION: 1. No acute intracranial abnormality. Electronically signed by: Carlos Luciano M.D. 07/16/2019 10:53 AM XR chest 1V portable CLINICAL HISTORY: Weakness. Cough. Chest pain. COMPARISON STUDY: No previous studies for comparison. FINDINGS: Lung volumes are normal. There is no pneumothorax or pleural effusion. Left basilar airspace opacity is present. There may be minimal left midlung opacity. Right lung is clear. Cardiac size is within normal limits. There is levoscoliosis of the thoracic spine. A 3.6 cm right paratracheal density is noted. Patient is mildly rotated. IMPRESSION: 1. Left basilar opacity suggestive of pneumonia. PA and lateral chest radiographs in one month to ensure resolution are recommended. 2. 3.6 cm right paratracheal density. This may be artifactual/related to patient rotation. However, this should be assessed on subsequent chest radiograph to exclude mediastinal abnormality. Electronically signed by: Miguel Chavez M.D. 07/16/2019 9:31 AM ECG Data Attestation: I personally reviewed and interpreted this ECG as follows: Indication: SOB/dyspnea Rate (beats per minute): 68 Findings: + other (normal EKG); no ST depression and no ST elevation Blood Pressure Blood Pressure Findings: Elevated blood pressure Blood Pressure Disposition: further management by hospitalist ELBA Vickers This is a 58-year-old female who presents emergency department complaining of hypoxia. The patient has had a large amount of vomiting. Patient was started on aztreonam as well as Levaquin here in the emergency department. She does have a large elevation in her white blood cell count. Due to the fact that the patient is requiring oxygen she was given an hour-long breathing treatment. I did discuss her case with the hospitalist service who agreed to admit the patient. Patient was in agreement with the treatment plan. Impression & Plan Acute respiratory failure with hypoxia, COPD exacerbation, Left lower lobe pneumonia Discharge Plan Visit Data *Final* Discharge Date/Time: 07/16/19 14:22 Chief Complaint: Vomiting Stated Complaint: VOMITING X2 DAYS, COUGH, FEVER ED Provider: Gm Win Discharge Problem: Acute respiratory failure with hypoxia, COPD exacerbation, Left lower lobe pneumonia Patient Disposition: Admitted As Inpatient Condition: Fair Discharge Instructions Interventions: ED Discharge Assessment Last Done: 07/16/19 14:22 The scribe's documentation has been prepared under my direction and personally reviewed by me in its entirety. I confirm that the note above accurately reflects all work, treatment, procedures, and medical decision making performed by me.
--- NOTE | 2019-07-23 04:31 | Coding Query ---
CODING QUERY To promote full compliance with coding requirements relating to patient care, provider participation is requested in all cases of hcc coders uncertainty. Please assist us with the question(s) below: Coding Question(s): Patient admitted with acute hypoxic respiratory failure and COPD exac. Disch Instructions document patient diagnosed with COPD exac and aspiration pneumonia 2nd to vomiting. Continue with Clindamycin coverage for aspiration pneumonia. CXR review , no active pneumonia- likely bacterial bronchitis, Please check below the diagnosis that was treated during this Inpatient stay. Thanks for your help! Kumar Watson [employer] [facility] Physician's Response(s): Pneumonia, not otherwise specified x__ Aspiration Pneumonia Bacterial bronchitis Cannot Clinically Correlate Other/ Please document: Principal Diagnosis: "that condition established after study, to be chiefly responsible for occasioning the admission of the patient to the hospital for care." Co-Existing Principal Diagnosis: "when two or more diagnoses equally meet the criteria for principal diagnosis as determined by the circumstances of admission, diagnostic work up, and/or therapy provided, and the Alphabetic Index, Tabular List, or another coding guideline does not provide sequencing direction, any one of the diagnoses may be sequenced first." "When the physician has documented what appears to be a current diagnosis in the body of the record, but has not included the diagnosis in the final diagnostic statement, the physician should be asked whether the diagnosis should be added." (Source Coding [facility] 2 QTR90. p3-4) MIGUEL
== END 2019-07-17 20:30 | disposition home or self-care (01) | DRG 177 ==
LOC: ED 08:40 → SUATTDRO 12:24 → 2E 12:24

== ENCOUNTER 2019-07-19 18:30 | Inpatient (IN) ==
[2019-07-19] MEDS ORDERED: ALBUT/IPRATROP 3MG/0.5MG NEB 3 ML VIAL INH STA (18:54)
[2019-07-19] MEDS ORDERED: methylPREDNISolone 125 MG/2 ML VIAL IV STA (18:54)
--- NOTE | 2019-07-19 19:06 | XRay Report ---
XR chest 1V portable CLINICAL HISTORY: 58 years-old Female presenting with Dyspnea. TECHNIQUE: Portable upright AP view of the chest was obtained. COMPARISON: None. FINDINGS: Atherosclerosis of the aortic arch. Cardiac silhouette borderline enlarged. Minimal basilar opacities , slightly decreased from prior. No pleural effusion or pneumothorax. Degenerative changes of the tho racic spine. Mild levoscoliosis. Gaseous distention of colon beneath the left hemidiaphragm. IMPRESSION: 1. Minimal bibasilar opacities, slightly decreased from prior, likely atelectasis, scarring, or reso lving pneumonia. 2. Borderline cardiomegaly. Electronically signed by: Carlos Luciano M.D. 07/19/2019 7:05 PM
[2019-07-19 19:59] LABS: Basophils # (auto) 0.01 K/uL (0-0.2); Basophils % (auto) 0.1 %; Eosinophils # (auto) 0.18 K/uL (0-0.5); Eosinophils % (auto) 0.9 %; Hematocrit (blood only) 42.2 % (37-47); Immature Granulocytes # (auto) 0.11 K/uL (0.00-0.02); Immature Granulocytes % (auto) 0.6 %; Lymphocytes # (auto) 3.09 K/uL (1.2-3.4); Lymphocytes % (auto) 15.5 %; Mean Corpuscular Hemoglobin 30.2 pg (25-34); Mean Corpuscular Hgb Conc 33.2 g/dL (32-36); Mean Corpuscular Volume 91.1 fL (80-100); Mean Platelet Volume 9.8 fL (7.4-10.4); Monocytes # (auto) 2.04 K/uL (0.11-0.59); Monocytes % (auto) 10.2 %; Neutrophils # (auto) 14.52 K/uL (1.4-6.5); Neutrophils % (auto) 72.7 %; Platelet Count 312 K/uL (130-400); RDW Coefficient of Variation 13.4 % (11.5-14.5); RDW Standard Deviation 44.3 fL (36.4-46.3); Red Blood Count 4.63 M/uL (4.2-5.4); White Blood Count 19.95 K/uL (4.8-10.8)
[2019-07-19 20:07] LABS: INR 1.1 (0.9-1.1); Partial Thromboplastin Time 26.2 Seconds (21.0-31.0)
[2019-07-19 20:09] LABS: Base Excess VBG 5.3 mEq/L; Oxygen Saturation VBG 84.6 %; pH VBG 7.38 (7.36-7.41)
[2019-07-19 20:35] LABS: Albumin Globulin Ratio 0.8 (0.9-2); Albumin Level 3.4 gm/dl (3.4-5.0); BUN Creatinine Ratio 15.4 (10-20); Bilirubin,Total 0.6 mg/dl (0.2-1); Calcium 8.8 mg/dl (8.5-10.1); Creatinine Clr Calc Pharmacy 77.2 ml/min; Est GFR (African American) 91.5; Est GFR (Non-African American) 78.9; Globulin 4.4 gm/dl (2.5-4.0); Total Protein 7.8 gm/dl (6.4-8.2); Troponin I 0.089 ng/ml (0-0.045)
[2019-07-19] MEDS ORDERED: ASPIRIN 81 MG CHEW PO STA (20:44)
[2019-07-19] MEDS ORDERED: SODIUM CHLORIDE 0.9% 1000ML 2,000 ML IV ONE (20:44)
[2019-07-19] MEDS ORDERED: LEVOFLOXACIN/D5W 750 MG/150 ML BAG IV STA (20:45)
[2019-07-19] MEDS ORDERED: DOXYCYCLINE HYCLATE 100 MG CAP PO STA (21:01)
[2019-07-19] MEDS ORDERED: metroNIDAZOLE 250 MG TAB PO STA (21:07)
[2019-07-19] MEDS ORDERED: cefTRIAXone SODIUM 1,000 MG/50 ML BAG IV STA (21:07)
[2019-07-19 21:24] LABS: Potassium 3.2 mmol/L (3.5-5.1)
[2019-07-19 21:29] LABS: Magnesium 2.2 mg/dl (1.8-2.4)
[2019-07-19] MEDS ORDERED: POTASSIUM CHLORIDE 20 MEQ TABCR PO STA (22:11)
--- NOTE | 2019-07-19 22:12 | History & Physical Report ---
Date of Service July 19, 2019 Assessment & Plan (1) Acute respiratory failure with hypoxia: Admit patient to telemetry Oxygen supplement as needed Vitals per protocol Steroids/bronchodilators Antibiotics for pneumonia as mentioned below Counseled regarding tobacco abuse (2) Essential hypertension: With hypertensive crisis on presentation Continue home medications, it is hard to tell whether the hypertension was secondary to the hypoxia or the hypertension because of slight pulmonary congestion/flash pulmonary edema and caused hypoxia. In either way currently her blood pressure is within acceptable range systolic in the 160s and her oxy gen saturation is acceptable on 6 L of oxygen. Since his creatinine her creatinine 0.8 and she does not appear to be volume depleted we will start her on a low-dose Lasix to try out her lungs. If she developed significant improvement overnight then most likely it was just extra fluids in the lung from the hypertensive crisis Restarted her lisinopril (3) Left lower lobe pneumonia: My personal convention that it is improving but for the possibility of failure of oral clindamycin, We will start patient on cefepime/doxycycline to cover both typical and at ypical. The nature of her penicillin to allergy was a reaction she had in childhood Patient agrees to be challenged with cephalosporin. (4) COPD exacerbation: Continue small dose steroids Continue bronchodilators (5) Hypertensive crisis: As mentioned in above and hypertension section (6) Non-ST elevation MS (NSTEMI): Likely demand ischemia we will trend her troponin. History of Present Illness 58 years old female with past medical history of rheumatoid arthritis, tobacco abuse and essential hypertension, patient has COPD but never required oxygen at home was admitted to the hospital with pneumonia about 4 days ago and discharged on oral clindamycin. After going home patient developed progressive shortness of breath and worsening cough presented to the ER was found to have a blood pressure of 200/120, chest x-ray showed some improvement in her larger density component in the basal lung brower which basically her pneumonia but did show a little bit increased bronchovascular markings all over the lung possibly a little bit of slight flash pulmonary edema versus possible failure of clindamycin. Patient oxygen saturation was in the 70s, she will be admitted to the hospital for further evaluation and management. She does have penicillin allergy/hives, when inquiring more about her allergy it turned out that when she was a child she had a reaction to penicillin and she was told not to use it again. Discussed with patient attempting to try a third or fourth generation) and she agrees and she was instructed to let the nurse know immediately if she had any reaction. Primary Care Provider: Krystle Quinteros MD Allergies Allergy/AdvReac Type Severity Reaction Status Date / Time bee venom protein (honey bee) Allergy Swelling Unverified 07/19/19 21:21 of Lip/Tongue/Throat Penicillins Allergy Hives Unverified 07/19/19 21:21 Home Medications Home Medications Medication Instructions Recorded Confirmed Type Combivent Respimat 2 puff INHALATION QID PRN #0 g 07/17/19 07/19/19 Rx aspirin 81 mg PO DAILY #30 tab 07/17/19 07/19/19 Rx budesonide-formoterol [Symbicort] 2 puff INHALATION BID PRN #6 gm 07/17/19 07/19/19 Rx clindamycin HCl 600 mg PO BID 6 Days #24 cap 07/17/19 07/19/19 Rx lisinopril 20 mg PO DAILY #0 tab 07/17/19 07/19/19 Rx prednisone 40 mg PO QAM #4 tab 07/17/19 07/19/19 Rx albuterol sulfate HFA 90 1 puffs INH Q6H PRN #6.7 gm 07/18/19 07/19/19 Rx mcg/actuation aerosol inhaler lorazepam 0.5 mg tablet 0.5 mg PO Q4H PRN tab 07/18/19 07/19/19 History methadone 40 mg soluble tablet 95 mg PO DAILY tab 07/18/19 07/19/19 History ondansetron HCl 4 mg tablet 4 mg PO QID PRN #10 tab 07/19/19 07/19/19 Rx Past Med/Surg History Medical History Anxiety Essential hypertension Tobacco abuse Left lower lobe pneumonia (Acute) COPD exacerbation (Acute) Acute respiratory failure with hypoxia (Acute) Epistaxis (Acute) Von Willebrand disease Surgical History No pertinent past surgical history Social History Preferred Language: Nepalese Communication Ability: Effective Beliefs That Will Affect Care: None Current Living Situation: Alone Feels Safe at Home: Yes Smoking Status: Current every day smoker Tobacco Type: cigarettes ; Cigarettes Per Day: 20 ; Hx Alcohol Use: No Hx Substance Use: No Review of Systems Review of Systems: Review of system Constitutional: No fever / no chills / no sweats / no weakness / no fatigue Eyes: no blurring of vision / no eye pain / no discharge / no redness ENT: no hearing loss / no epistaxis /no swallowing problems Respiratory: Shortness of breath, significant wheezing, productive cough/dry cough / no hemoptysis Cardiovascular: no Chest pain / no lower extremity edema / no palpitation Abdomen: no pain / no nausea / no vomiting / no constipation Musculoskeletal: no joint pain / no muscle pain / no joint swelling Genitourinary: no dysuria / no incontinence / no urinary retention Neurologic: no focal weakness / no numbness/tingling / no ataxia Psychiatric: no depression symptoms / no anxiety / no insomnia Endocrine: no excessive thirst / no excessive urination Hematologic: no abnormal bleeding / no bruising / no LN swelling Skin: No rash / no pallor Physical Exam Physical Exam: Physical examination General patient appears to be comfortable, not in acute distress HEENT: Atraumatic , normocephalic /no jaundice /no pallor /anicteric /no dry mucous membrane /normal external ear inspection Neck: Supple /no swelling /central trach Heart: S1/S2 normal/regular rate and rhythm/no gallop /no rub /no murmur Lungs: Decreased air entry bilaterally, generalized wheezing both lung brower, scattered rhonchi, no chest wall tenderness Abdomen: Soft/nontender/no guarding/no rebound/no organomegaly/no pulsatile mass Musculoskeletal: No swelling/no edema/no tenderness/normal range of motion Neuro exam: Awake alert oriented 3/cranial nerves II through XII appear to be intact/sensation intact/moves all extremities/no abnormal movements Psychiatric evaluation: No depressed mood/normal affect Skin: No rash on exposed skin area/no erythema Extremity: Normal pulse/no pitting edema/no clubbing or cyanosis Endocrine/lymphatic: No obvious lymphadenopathy /no lymphedema Results & Data Vital Signs (Past 12 Hours) Vital Signs Temp Pulse Pulse Resp BP Pulse Ox 07/19/19 19:42 96 07/19/19 19:12 104 H 19 94 07/19/19 18:58 79 L 07/19/19 18:50 113 H 20 90 07/19/19 18:39 37.3 C 113 H 20 156/93 H 79 L PG Care Time/CCT Total # of Minutes Spent Total Time Spent with Patient: Total time spent is greater than 50% in coordin ation of care (as documented) at patient's floor/unit and/or counseling patient: (1) Left lower lobe pneumonia Pneumonia type: due to unspecified organism Qualified Code(s): J18.1 - Lobar pneumonia, unspecified organism
[2019-07-19] MEDS ORDERED: ZOLPIDEM TARTRATE 5 MG TAB PO PRN (22:13)
[2019-07-19] MEDS ORDERED: ALBUTEROL HFA 8 GM INHALER INH PRN (22:20)
[2019-07-19] MEDS ORDERED: BUDESONIDE/FORMOTEROL FUMARATE 160/4.5 60 PUFFS/INHALER INH PRN (22:20)
[2019-07-19] MEDS ORDERED: IPRATROPIUM BROMIDE/ALBUTEROL respimat INH INH PRN (22:20)
[2019-07-20] MEDS: CEFEPIME 1,000 MG in SYRINGE 0 ML IV SCH ×3 (00:04→23:54)
--- NOTE | 2019-07-20 00:39 | Emergency Department Note ---
Entered by Sophie Greene acting as a scribe for John Ramirez M.D. History of Present Illness General Chief complaint: Shortness of Breath/Dyspnea Stated complaint: SOB, NAUSEA, LOW GRADE TEMP Time Seen by Provider: 07/19/19 18:45 Source: patient History of Present Illness Onset (ago): day(s) 4 Location: chest Severity: similar to prior episodes Maximum Pain Intensity: 7 Current Pain Intensity: 7 Associated symptoms: + denies other symptoms (denies abdominal pain and new swelling), + cough (with sputum), + fever/chills, + headaches, + nausea/vomiting and + shortness of breath; no chest pain The patient is a 58 year old female who presents to the Emergency Room with complaints of shortness of breath that started on Monday, 4 days ago. She came into the ED and was diagnosed with aspiration pneumonia. The patient stayed in the hospital until Monday, and was discharged home with Clindamycin and Prednisone. She noticed that her symptoms have persisted, including fever and cough with sputum. She also noted nausea, vomiting, and headache. There is no blood or color to the sputum. She also complains of increased heart rate and low pulse oxygen. She has a history of smoking but has recently been trying to quit. The patient lives at home by herself has a nebulizer at home that she has been using as needed. She denies chest pen, abdominal pain, and any new swelling. Home Medications Home Medications Medication Instructions Recorded Confirmed Type Combivent Respimat 2 puff INHALATION QID PRN #0 g 07/17/19 07/19/19 Rx aspirin 81 mg PO DAILY #30 tab 07/17/19 07/19/19 Rx budesonide-formoterol [Symbicort] 2 puff INHALATION BID PRN #6 gm 07/17/19 07/19/19 Rx clindamycin HCl 600 mg PO BID 6 Days #24 cap 07/17/19 07/19/19 Rx lisinopril 20 mg PO DAILY #0 tab 07/17/19 07/19/19 Rx prednisone 40 mg PO QAM #4 tab 07/17/19 07/19/19 Rx albuterol sulfate HFA 90 1 puffs INH Q6H PRN #6.7 gm 09/19/19 09/20/19 Rx mcg/actuation aerosol inhaler lorazepam 0.5 mg tablet 0.5 mg PO Q4H PRN tab 07/18/19 07/19/19 History methadone 40 mg soluble tablet 95 mg PO DAILY tab 07/18/19 07/19/19 History ondansetron HCl 4 mg tablet 4 mg PO QID PRN #10 tab 07/19/19 07/19/19 Rx Allergies Allergy/AdvReac Type Severity Reaction Status Date / Time bee venom protein (honey bee) Allergy Swelling Unverified 07/19/19 21:21 of Lip/Tongue/Throat Penicillins Allergy Hives Unverified 07/19/19 21:21 Past Med/Surg History Medical History Anxiety Essential hypertension Tobacco abuse Left lower lobe pneumonia (Acute) COPD exacerbation (Acute) Acute respiratory failure with hypoxia (Acute) Epistaxis (Acute) Von Willebrand disease Surgical History No pertinent past surgical history Social History Preferred Language: Armenian Communication Ability: Effective Hourly Manager Required: No Beliefs That Will Affect Care: None Current Living Situation: Alone Other Information That Helps Us Care for You: No Feels Safe at Home: Yes Safety Concerns: Feels Safe At This Time Smoking Status: Current every day smoker Tobacco Type: cigarettes ; Cigarettes Per Day: 20 ; Do You Dip or Chew Tobacco: No ; Second Hand Exposure: No ; Tobacco Cessation Education Requested by Patient: No Hx Alcohol Use: Yes Hx Substance Use: No Review of Systems See HPI for pertinent positives & negatives. and A total of 10 systems reviewed and were otherwise negative Physical Exam Vital Signs Vital Signs - 24 hr 07/19/19 18:39 07/19/19 18:50 07/19/19 18:58 Temperature 37.3 C Temperature Source Oral Sepsis Action Taken by Nursing No Action Required Oxygen Flow Rate - Titration 6 Pulse Oximetry Post Tiitration 90 Pulse Rate 113 H Pulse Rate [Finger] 113 H Pulse Rhythm [Finger] Regular Respiratory Rate 20 20 Respiratory Effort / Characteristics Respiratory Depth Normal Normal Respiratory Pattern Regular Blood Pressure 156/93 H Blood Pressure Mean 114 Blood Pressure Position Sitting Pulse Oximetry 79 L 90 79 L Oxygen Delivery Method Room Air Nasal Cannula Room Air Nasal Cannula Oxygen Flow Rate 6 07/19/19 19:12 07/19/19 19:42 Temperature Temperature Source Sepsis Action Taken by Nursing Oxygen Flow Rate - Titration Pulse Oximetry Post Tiitration Pulse Rate Pulse Rate [Finger] 104 H Pulse Rhythm [Finger] Respiratory Rate 19 Respiratory Effort / Characteristics Non-Labored Spontaneous Respiratory Depth Respiratory Pattern Blood Pressure Blood Pressure Mean Blood Pressure Position Pulse Oximetry 94 96 Oxygen Delivery Method Nasal Cannula Nasal Cannula Oxygen Flow Rate 5.5 6 GENERAL: Awake, alert, fatigued-appearing on NC O2 HENT: Normocephalic, atraumatic. EYES: Normal conjunctiva. Sclera non-icteric. NECK: Supple. No nuchal rigidity. RESPIRATORY: Clear to auscultation. Inspiratory and expiratory wheezes. Mildly increased respiratory effort. CARDIAC: Regular tachycardic. Normal rhythm. Extremities warm and well perfused. GI: Soft, non-distended. No tenderness to palpation. No rebound or guarding. RECTAL: Deferred. MUSCULOSKELETAL: Atraumatic. Chest examination reveals no tenderness. LOWER EXTREMITIES: Calves are equal size bilaterally and non-tender. No edema NEURO: Normal sensorium. No sensory or motor deficits noted. No facial droop. SKIN: Warm and dry. No jaundice noted. Course 1850: Past medical records reviewed. The patient was evaluated in room B09. A complete history and physical exam was performed. 2100: I spoke with Dr. Tovar, [facility] hospitalist, who agreed to take of care of the patient. I updated the patient on her test results, and she agreed to stay for further evaluation. Consultations Consultation #1: I spoke with Dr. Tovar, [facility] hospitalist, who agreed to take of care of the patient. I updated the patient on her test results, and she agreed to stay for further evaluation. Time: 21:01 Administered Medications Cefepime HCl 1,000 mg/ Syringe 11.3 mls @ 5.5 mls/min IV Q12H [facility]; Protocol Stop: 07/27/19 00:00 Last Admin: 07/20/19 00:04 Dose: 5.5 mls/min Documented by: [id number] Discontinued Medications Albuterol (Duoneb) 12 ml INH ONE STA Stop: 07/19/19 18:55 Last Admin: 07/19/19 19:12 Dose: 12 ml Documented by: [id number] Aspirin (Aspirin Chew) 324 mg PO NOW STA Stop: 07/19/19 20:45 Last Admin: 07/19/19 20:59 Dose: 324 mg Documented by: [id number] Doxycycline Hyclate (Vibramycin) 100 mg PO NOW STA Stop: 07/19/19 21:02 Last Admin: 07/19/19 21:26 Dose: 100 mg Documented by: [id number] Sodium Chloride (Nss 1000ml) 2,000 mls @ 999 mls/hr IV .Q2H1M ONE Stop: 07/19/19 22:44 Last Infusion: 07/19/19 23:55 Dose: 0 mls/hr Documented by: [id number] Admin: 07/19/19 21:00 Dose: 999 mls/hr Documented by: [id number] Levofloxacin/Dextrose (Levaquin/D5w) 750 mg in 150 mls @ 100 mls/hr IV NOW STA Stop: 07/19/19 22:14 Last Admin: 07/19/19 20:48 Dose: Not Given Documented by: [id number] Ceftriaxone Sodium (Rocephin) 1,000 mg in 50 mls @ 100 mls/hr IV NOW STA Stop: 07/19/19 21:36 Last Infusion: 07/19/19 22:12 Dose: 0 mls/hr Documented by: [id number] Admin: 07/19/19 21:26 Dose: 100 mls/hr Documented by: [id number] Methylprednisolone (Solumedrol) 60 mg IV NOW STA Stop: 07/19/19 18:55 Last Admin: 07/19/19 19:30 Dose: 60 mg Documented by: [id number] Metronidazole (Flagyl) 500 mg PO NOW STA Stop: 07/19/19 21:08 Last Admin: 07/19/19 21:26 Dose: 500 mg Documented by: [id number] Potassium Chloride (Klor-Con M20) 40 meq PO NOW STA Stop: 07/19/19 22:12 Last Admin: 07/20/19 00:04 Dose: 40 meq Documented by: [id number] Medical Decision Making Differential Diagnosis Differential diagnosis includes: infections, reactive airway disease, pneumonia, pneumothorax, COPD, CHF, cardiac ischemia, pulmonary embolism, musculoskeletal, gastrointestinal, as well as others were entertained. Medical Records Attestation: I reviewed the patient's medical records. Home Medications Current Medication List: was personally reviewed by me Laboratory Data Attestation: I reviewed the patient's lab results. Result diagrams: 07/19/19 19:27 07/19/19 20:53 Lab Results 07/19/19 07/19/19 07/19/19 Range/Units 19:27 19:27 19:27 WBC 19.95 H (4.8-10.8) K/uL RBC 4.63 (4.2-5.4) M/uL Hgb 14.0 (12.0-16.0) g/dL Hct 42.2 (37-47) % MCV 91.1 (80-100) fL MCH 30.2 (25-34) pg MCHC 33.2 (32-36) g/dL RDW Std Deviation 44.3 (36.4-46.3) fL RDW Coeff of Isreal 13.4 (11.5-14.5) % Plt Count 312 (130-400) K/uL MPV 9.8 (7.4-10.4) fL Immature Gran % (Auto) 0.6 % Neut % (Auto) 72.7 % Lymph % (Auto) 15.5 % Wise % (Auto) 10.2 % Eos % (Auto) 0.9 % Baso % (Auto) 0.1 % Immature Gran # (Auto) 0.11 H (0.00-0.02) K/uL Neut # (Auto) 14.52 H (1.4-6.5) K/uL Lymph # (Auto) 3.09 (1.2-3.4) K/uL Wise # (Auto) 2.04 H (0.11-0.59) K/uL Eos # (Auto) 0.18 (0-0.5) K/uL Baso # (Auto) 0.01 (0-0.2) K/uL PT 11.0 (9.0-12.0) Seconds INR 1.1 (0.9-1.1) APTT 26.2 (21.0-31.0) Seconds PTT Ratio 1.0 VBG pH (7.36-7.41) VBG pCO2 (38-50) mmHg VBG pO2 mmHg VBG HCO3 mmol/L VBG O2 Saturation % VBG Base Excess mEq/L Barometric Pressure mm/Hg Sodium 138 (136-145) mmol/L Potassium (3.5-5.1) mmol/L Chloride 102 (98-107) mmol/L Carbon Dioxide 30 (21-32) mmol/L Anion Gap 6.0 (3-11) BUN 12 (7-18) mg/dl Creatinine 0.81 (0.6-1.2) mg/dl Est Cr Clr Drug Dosing 77.2 ml/min Est GFR ( Amer) 91.5 Est GFR (Non-Af Amer) 78.9 BUN/Creatinine Ratio 15.4 (10-20) Glucose 118 H (70-99) mg/dl Lactate (0.4-2.0) mmol/L Calcium 8.8 (8.5-10.1) mg/dl Magnesium (1.8-2.4) mg/dl Total Bilirubin 0.6 (0.2-1) mg/dl AST (15-37) U/L ALT 26 (12-78) U/L Alkaline Phosphatase 60 (45-117) U/L Troponin I 0.089 H* (0-0.045) ng/ml Total Protein 7.8 (6.4-8.2) gm/dl Albumin 3.4 (3.4-5.0) gm/dl Globulin 4.4 H (2.5-4.0) gm/dl Albumin/Globulin Ratio 0.8 L (0.9-2) Lipase 29 L (73-393) U/L 07/19/19 07/19/19 07/19/19 Range/Units 19:27 19:27 20:53 WBC (4.8-10.8) K/uL RBC (4.2-5.4) M/uL Hgb (12.0-16.0) g/dL Hct (37-47) % MCV (80-100) fL MCH (25-34) pg MCHC (32-36) g/dL RDW Std Deviation (36.4-46.3) fL RDW Coeff of Isreal (11.5-14.5) % Plt Count (130-400) K/uL MPV (7.4-10.4) fL Immature Gran % (Auto) % Neut % (Auto) % Lymph % (Auto) % Wise % (Auto) % Eos % (Auto) % Baso % (Auto) % Immature Gran # (Auto) (0.00-0.02) K/uL Neut # (Auto) (1.4-6.5) K/uL Lymph # (Auto) (1.2-3.4) K/uL Wise # (Auto) (0.11-0.59) K/uL Eos # (Auto) (0-0.5) K/uL Baso # (Auto) (0-0.2) K/uL PT (9.0-12.0) Seconds INR (0.9-1.1) APTT (21.0-31.0) Seconds PTT Ratio VBG pH 7.38 (7.36-7.41) VBG pCO2 55 H (38-50) mmHg VBG pO2 50 mmHg VBG HCO3 32 mmol/L VBG O2 Saturation 84.6 % VBG Base Excess 5.3 mEq/L Barometric Pressure 737.0 mm/Hg Sodium (136-145) mmol/L Potassium 3.2 L (3.5-5.1) mmol/L Chloride (98-107) mmol/L Carbon Dioxide (21-32) mmol/L Anion Gap (3-11) BUN (7-18) mg/dl Creatinine (0.6-1.2) mg/dl Est Cr Clr Drug Dosing ml/min Est GFR ( Amer) Est GFR (Non-Af Amer) BUN/Creatinine Ratio (10-20) Glucose (70-99) mg/dl Lactate 1.6 (0.4-2.0) mmol/L Calcium (8.5-10.1) mg/dl Magnesium 2.2 (1.8-2.4) mg/dl Total Bilirubin (0.2-1) mg/dl AST 12 L (15-37) U/L ALT (12-78) U/L Alkaline Phosphatase (45-117) U/L Troponin I (0-0.045) ng/ml Total Protein (6.4-8.2) gm/dl Albumin (3.4-5.0) gm/dl Globulin (2.5-4.0) gm/dl Albumin/Globulin Ratio (0.9-2) Lipase (73-393) U/L Imaging Data Radiologist's Impression: Radiology results as stated below per my review and the radiologist's interpretation: XR chest 1V portable CLINICAL HISTORY: 58 years-old Female presenting with Dyspnea. TECHNIQUE: Portable upright AP view of the chest was obtained. COMPARISON: None. FINDINGS: Atherosclerosis of the aortic arch. Cardiac silhouette borderline enlarged. Minimal basilar opacities, slightly decreased from prior. No pleural effusion or pneumothorax. Degenerative changes of the thoracic spine. Mild levoscoliosis. Gaseous distention of colon beneath the left hemidiaphragm. IMPRESSION: 1. Minimal bibasilar opacities, slightly decreased from prior, likely atelecta sis, scarring, or resolving pneumonia. 2. Borderline cardiomegaly. Electronically signed by: Carlos Luciano M.D. 07/19/2019 7:05 PM ECG Data Attestation: I personally reviewed and interpreted this ECG as follows: Indication: SOB/dyspnea Rate (beats per minute): 99 Rhythm: normal sinus Findings: + other (QTC 497); no PVC, no ST depression and no ST elevation Blood Pressure Blood Pressure Findings: Elevated blood pressure Blood Pressure Disposition: further management by hospitalist ELBA Narrative Patient is a 58-year-old female history of COPD presenting today complaining of worsening breathing and tachycardia as well as some headache and persistent cough over the last several days. Seen here earlier this week for diagnosed with aspiration pneumonia and COPD exacerbation. Patient stayed overnight and was feeling better and went home. States she lives at home alone things have not been going well. Noted be hypoxic and tachycardic upon arrival to triage. Not normally on home oxygen now requiring initially 6 L of oxygen. Patient diffusely wheezy on exam. Been on prednisone but given a small additional amount of Solu-Medrol here. Given a DuoNeb. Cultures and lactate were obtained. EKG and troponin completed a lower suspicion is acute ACS. EKG without changes. No other laboratory evidence of acute hepatitis or pancreatitis. Chest x-ray shows some slight decrease of pneumonia. Laboratory studies show persistent leukocytosis slightly improved but now new troponin elevation likely demand. Did give her full dose aspirin however. Not having active chest pain. Given this and hypoxia, discussed with hospitalist for admission. Not improving on clindamycin and now with hypoxia, switched abx. She has tolerated cephalosporin before and given today ceftriaxone, Flagyl, doxy for broad anaerobic, typical, and atypical coverage. Recent CTA 3 days ago without evidence of PE and will not pursue this further at this time. Impression & Plan Aspiration pneumonia, Non-ST elevation NC (NSTEMI), Hypoxia, COPD exacerbation Critical Care Time Critical Care Time: Yes Total Critical Care Time: 32 I have personally spent 32 minutes of critical care time in the direct management of this patient. This includes bedside care, interpretation of diagnostic studies, and testing, discussion with consultants, patient, and family members, and other required patient management activities. This 32 minutes is in excess of all separately billable procedures. Discharge Plan Visit Data *Final* Discharge Date/Time: 07/19/19 23:41 Chief Complaint: Shortness of Breath/Dyspnea Stated Complaint: SOB, NAUSEA, LOW GRADE TEMP ED Provider: John Ramirez Discharge Problem: Aspiration pneumonia, Non-ST elevation NC (NSTEMI), Hypoxia, COPD exacerbation Patient Disposition: Admitted As Inpatient Discharge Instructions Interventions: ED Discharge Assessment Last Done: 07/19/19 23:41 The scribe's documentation has been prepared under my direction and personally reviewed by me in its entirety. I confirm that the note above accurately reflects all work, treatment, procedures, and medical decision making performed by me.
[2019-07-20] MEDS: ALBUT/IPRATROP 3MG/0.5MG NEB 3 ML VIAL INH SCH ×4 (01:07→19:10)
[2019-07-20] MEDS: methylPREDNISolone 40 MG in SYRINGE 0 ML IV SCH ×3 (04:49→21:29)
[2019-07-20] MEDS ORDERED: PNEUMOCOCCAL ADMINISTRATION CHARGE ONE (06:00)
[2019-07-20] MEDS ORDERED: PNEUMOCOCCAL POLYSACCHARIDES 25 MCG/0.5 ML VIAL/SYR IM ONE (06:00)
[2019-07-20] MEDS: ASPIRIN 81 MG ECTAB PO SCH (08:09)
[2019-07-20] MEDS: DOXYCYCLINE HYCLATE 100 MG in DEXTROSE 5% 100 ML IV SCH ×2 (08:09→21:30)
[2019-07-20] MEDS: LACTOBACILLUS ACIDOPHILUS 1 GM PACK PO SCH ×3 (08:10→17:17)
[2019-07-20] MEDS: ENOXAPARIN INJ 40 MG/0.4 ML SYR SQ SCH (08:10)
[2019-07-20] MEDS: METHADONE ORAL SOLN 2 MG/ML PO SCH (08:21)
[2019-07-20] MEDS: PATIENT'S OWN CONTROLLED MED PO SCH (08:21)
[2019-07-20] MEDS ORDERED: lisinopriL 10 MG TAB PO SCH (09:00)
[2019-07-20] MEDS ORDERED: FUROSEMIDE 20 MG in SYRINGE 0 ML IV SCH (09:00)
[2019-07-20 10:17] LABS: Basophils # (auto) 0.02 K/uL (0-0.2); Basophils % (auto) 0.1 %; Hematocrit (blood only) 39.4 % (37-47); Hemoglobin 12.8 g/dL (12.0-16.0); Immature Granulocytes # (auto) 0.08 K/uL (0.00-0.02); Immature Granulocytes % (auto) 0.4 %; Lymphocytes # (auto) 2.67 K/uL (1.2-3.4); Lymphocytes % (auto) 13.5 %; Mean Corpuscular Hgb Conc 32.5 g/dL (32-36); Mean Corpuscular Volume 92.5 fL (80-100); Mean Platelet Volume 9.8 fL (7.4-10.4); Monocytes # (auto) 1.07 K/uL (0.11-0.59); Monocytes % (auto) 5.4 %; Neutrophils # (auto) 15.97 K/uL (1.4-6.5); Neutrophils % (auto) 80.6 %; Platelet Count 289 K/uL (130-400); RDW Coefficient of Variation 13.6 % (11.5-14.5); RDW Standard Deviation 45.5 fL (36.4-46.3); Red Blood Count 4.26 M/uL (4.2-5.4); White Blood Count 19.81 K/uL (4.8-10.8)
[2019-07-20 10:36] LABS: BUN Creatinine Ratio 22.5 (10-20); Calcium 8.7 mg/dl (8.5-10.1); Creatinine Clr Calc Pharmacy 96.2 ml/min; Est GFR (African American) 111.8; Est GFR (Non-African American) 96.5; Potassium 4.6 mmol/L (3.5-5.1)
[2019-07-20 10:37] LABS: Troponin I 0.04 ng/ml (0-0.045)
[2019-07-20] MEDS ORDERED: HydrALAZINE HCL 20 MG/ML VIAL IV STA (15:19)
[2019-07-20] MEDS: FAMOTIDINE 20 MG TAB PO SCH (17:18)
--- NOTE | 2019-07-20 19:47 | Hospitalist Progress Note ---
Date of Service July 20, 2019 Assessment & Plan (1) Acute respiratory failure with hypoxia: Secondary to community versus aspiration pneumonia with COPD exacerbation Wean O2 aim > 90% (2) COPD exacerbation: Continue small dose steroids Continue bronchodilators (3) Left lower lobe pneumonia: Unclear failure of clindamycin given improved appearance on chest x-ray. We will start patient on cefepime/doxycycline to cover both typical and atypical. The nature of her penicillin to allergy was a reaction she had in childhood Patient agrees to be challenged with cephalosporin. (4) Essential hypertension: Hypertensive urgency without emergency. Not on medications prior to last recent admission. Increase lisinopril from 20 to 40 mg daily Hydralazine 10 mg IV as needed every 4 hourly for systolic blood pressure greater than 180 or diastolic blood pressure greater than 110 (5) Hypertensive crisis: See above (6) Demand ischemia of myocardium: Very mild elevated troponin, repeat normal (7) Tobacco abuse: Counseled regarding tobacco cessation (8) DVT prophylaxis: Lovenox 40mg SQ daily Code - Full Dispo - transfer to med/surg, continued admission due to hypoxia Subjective History revisited with the patient. 58-year-old female admission for COPD exacerbation and aspiration pneumonia due to vomiting from suspected viral gastroenteritis on 16 July, discharged the following day since she was on room air, no hospitalized exacerbations over the last 12 months and no maintenance inhalers. She was treated with clindamycin, prednisone, Combivent and Symbicort inhalers. On discharge she reports feeling nauseous taking these medications and felt she over exerted herself shopping. She also reports continuing to smoke cigarettes. She returned to the ER yesterday with increased cough, ongoing fevers and new onset hypoxia. Started on cefepime and doxycycline for antibiotics overnight. Methylprednisone 40 mg IV every 8 hours. Chest x-ray showed resolving pneumonia. This morning she feels improved since admission however has continued wet cough and shortness of breath on exertion. She feels to far off her baseline Review of Systems Review of Systems: All systems reviewed & are unremarkable except as noted in HPI & below Physical Exam Constitutional: + ill appearing and + thin; not in distress Eyes: normal visual brower by confrontation and PERRL; normal pupil size ENMT: external ear and nose normal, oropharynx normal Mouth: + dry oral mucous membranes Neck: trachea midline Respiratory: Auscultation: + wheezes (Expiratory diffusely on back); no diminished lung sounds, no crackles, no rales and no rhonchi Gastrointestinal (Abdomen): Inspection/Auscultation: abdomen normal to inspection and normal bowel sounds; abdomen not distended Percussion/Palpation: + abdomen tender (Mild epigastric) and abdomen soft; no guarding and abdomen not rigid Musculoskeletal: no cyanosis or clubbing, extremities motor strength 5/5 Skin: no rashes, warm and dry Neurologic: normal touch/pain/proprioception (Grossly), moves all extremities and awake; no focal motor deficits Psychiatric: A+Ox3, euthymic affect Results & Data Vital Signs (Past 12 Hours) Vital Signs Temp Pulse Pulse Pulse Resp BP BP 07/20/19 19:16 97.9 F 70 21 181/88 H 07/20/19 19:12 70 16 07/20/19 16:00 74 07/20/19 14:59 98.4 F 82 20 171/98 H 07/20/19 13:45 70 16 07/20/19 11:55 98.2 F 80 20 190/100 H 221/105 H 07/20/19 11:45 07/20/19 09:22 60 Pulse Ox 07/20/19 19:16 96 07/20/19 19:12 96 07/20/19 16:00 07/20/19 14:59 92 07/20/19 13:45 93 07/20/19 11:55 91 07/20/19 11:45 85 L 07/20/19 09:22 PG Care Time/CCT Total # of Minutes Spent Total Time Spent with Patient: Total time spent is greater than 50% in coordin ation of care (as documented) at patient's floor/unit and/or counseling patient: (1) Left lower lobe pneumonia Pneumonia type: due to unspecified organism Qualified Code(s): J18.1 - Lobar pneumonia, unspecified organism
[2019-07-20] MEDS: BUDESONIDE/FORMOTEROL FUMARATE 160/4.5 60 PUFFS/INHALER INH SCH (21:10)
[2019-07-20] MEDS: ACETAMINOPHEN 325 MG TAB PO PRN (21:37)
[2019-07-21] MEDS: HydrALAZINE HCL 20 MG/ML VIAL IV PRN ×2 (00:02→12:01)
[2019-07-21] MEDS: ALBUT/IPRATROP 3MG/0.5MG NEB 3 ML VIAL INH SCH ×4 (01:04→19:09)
[2019-07-21] MEDS: LORazepam 0.5 MG TAB PO PRN ×2 (03:31→21:02)
[2019-07-21 08:30] LABS: Basophils # (auto) 0.02 K/uL (0-0.2); Basophils % (auto) 0.1 %; Eosinophils # (auto) 0.01 K/uL (0-0.5); Hematocrit (blood only) 40.9 % (37-47); Immature Granulocytes # (auto) 0.48 K/uL (0.00-0.02); Immature Granulocytes % (auto) 1.8 %; Lymphocytes # (auto) 3.87 K/uL (1.2-3.4); Lymphocytes % (auto) 14.8 %; Mean Corpuscular Hemoglobin 30.9 pg (25-34); Mean Corpuscular Hgb Conc 34.2 g/dL (32-36); Mean Corpuscular Volume 90.3 fL (80-100); Mean Platelet Volume 9.7 fL (7.4-10.4); Monocytes # (auto) 2.03 K/uL (0.11-0.59); Monocytes % (auto) 7.8 %; Neutrophils # (auto) 19.74 K/uL (1.4-6.5); Neutrophils % (auto) 75.5 %; Platelet Count 350 K/uL (130-400); RDW Coefficient of Variation 13.5 % (11.5-14.5); RDW Standard Deviation 44.7 fL (36.4-46.3); Red Blood Count 4.53 M/uL (4.2-5.4); White Blood Count 26.15 K/uL (4.8-10.8)
[2019-07-21 09:16] LABS: BUN Creatinine Ratio 26.4 (10-20); Calcium 9.5 mg/dl (8.5-10.1); Creatinine Clr Calc Pharmacy 86.8 ml/min; Est GFR (African American) 105.5; Potassium 3.6 mmol/L (3.5-5.1)
[2019-07-21] MEDS: DOXYCYCLINE HYCLATE 100 MG in DEXTROSE 5% 100 ML IV SCH ×2 (09:28→21:02)
[2019-07-21] MEDS: METHADONE ORAL SOLN 2 MG/ML PO SCH (09:31)
[2019-07-21] MEDS: methylPREDNISolone 40 MG in SYRINGE 0 ML IV SCH (09:32)
[2019-07-21] MEDS: PATIENT'S OWN CONTROLLED MED PO SCH (09:32)
[2019-07-21] MEDS: FAMOTIDINE 20 MG TAB PO SCH (09:33)
[2019-07-21] MEDS: LACTOBACILLUS ACIDOPHILUS 1 GM PACK PO SCH ×3 (09:33→16:26)
[2019-07-21] MEDS: ASPIRIN 81 MG ECTAB PO SCH (09:33)
[2019-07-21] MEDS: BUDESONIDE/FORMOTEROL FUMARATE 160/4.5 60 PUFFS/INHALER INH SCH (09:33)
[2019-07-21] MEDS: ENOXAPARIN INJ 40 MG/0.4 ML SYR SQ SCH (09:34)
[2019-07-21] MEDS: lisinopriL 40 MG TAB PO SCH (10:34)
[2019-07-21] MEDS: CEFEPIME 1,000 MG in SYRINGE 0 ML IV SCH (12:01)
[2019-07-21] MEDS ORDERED: AMLODIPINE BESYLATE 5 MG TAB PO ONE (21:00)
[2019-07-21] MEDS: FLUTICASONE HFA 220 MCG INHALER INH SCH (21:19)
--- NOTE | 2019-07-22 00:07 | Hospitalist Progress Note ---
Date of Service July 21, 2019 Assessment & Plan (1) Acute respiratory failure with hypoxia: Secondary to community/aspiration pneumonia with COPD exacerbation. Started after viral gastroenteritis causing vomiting. Wean O2 aim > 90% (2) COPD exacerbation: Switch IV methylprednisone to 40mg prednisone daily Switch duoneb to levalbuterol/iptratropium to see if improves palpitations. Switch symbicort to flovent also to see if improves palpitations. Wash mouth out after use. (3) Left lower lobe pneumonia: Unclear failure of clindamycin given improved appearance on chest x-ray. However given re-admission with hypoxia will continue IV antibiotics until further clinical improvement. Narrow antibiotic coverage to ceftriaxone/doxycycline. Continue lactobacillus (4) Essential hypertension: Hypertensive urgency without emergency. Increase lisinopril from 20 to 40 mg daily. Start amlodipine 10mg daily. Hydralazine 10 mg IV as needed every 4 hourly for systolic blood pressure greater than 180 or diastolic blood pressure greater than 110 (5) Hypertensive crisis: See above (6) Demand ischemia of myocardium: Very mild elevated troponin, repeat normal (7) Tobacco abuse: Counseled regarding tobacco cessation (8) DVT prophylaxis: Lovenox 40mg SQ daily Code - Full Dispo - continued inpatient stay due to hypoxia (readmission) Subjective Patient continues to feel wheezy and short of breath even at rest. Continues to have wet cough. Feels palpitations with Symbicort so no longer wishes to take this. No chest pain. Review of Systems Review of Systems: All systems reviewed & are unremarkable except as noted in HPI & below Physical Exam Constitutional: + ill appearing and + thin; not in distress Eyes: + anicteric sclerae; no conjunctival abnormality and normal pupil size ENMT: external ear and nose normal, oropharynx normal Neck: normal visual inspection and trachea midline Respiratory: Auscultation: + wheezes (Expiratory diffusely on back (improved from prior day)); no diminished lung sounds, no crackles, no rales and no rhonchi Cardiovascular: RRR, no murmur, no edema Gastrointestinal (Abdomen): Inspection/Auscultation: abdomen normal to inspection; abdomen not distended Percussion/Palpation: + abdomen tender (Mild epigastric) and abdomen soft; no guarding and abdomen not rigid Musculoskeletal: no cyanosis or clubbing, extremities motor strength 5/5 Skin: no rashes, warm and dry Neurologic: moves all extremities and awake; no focal motor deficits Speech / Cognition: normal speech Motor/Sensory: no sensory deficit Psychiatric: A+Ox3, euthymic affect Results & Data Vital Signs (Past 12 Hours) Vital Signs Temp Pulse Pulse Pulse Resp BP Pulse Ox 07/21/19 19:09 71 18 98 07/21/19 15:00 97.9 F 74 107 H 18 165/85 H 94 07/21/19 13:23 79 20 95 PG Care Time/CCT Total # of Minutes Spent Total Time Spent with Patient: Total time spent is greater than 50% in coordination of care (as documented) at patient's floor/unit and/or counseling patient: (1) Left lower lobe pneumonia Pneumonia type: due to unspecified organism Qualified Code(s): J18.1 - Lobar pneumonia, unspecified organism
[2019-07-22] MEDS: LEVALBUTEROL HCL 0.63 MG/3 ML NEB NEB SCH ×5 (01:16→19:58)
[2019-07-22] MEDS: IPRATROPIUM BROMIDE NEB SOLN 0.02% 2.5 ML VIAL INH SCH ×5 (01:16→19:59)
[2019-07-22] MEDS: LACTOBACILLUS ACIDOPHILUS 1 GM PACK PO SCH ×3 (08:30→16:45)
[2019-07-22] MEDS: METHADONE ORAL SOLN 2 MG/ML PO SCH (08:32)
[2019-07-22] MEDS: FLUTICASONE HFA 220 MCG INHALER INH SCH ×2 (08:32→20:28)
[2019-07-22] MEDS: ENOXAPARIN INJ 40 MG/0.4 ML SYR SQ SCH (08:32)
[2019-07-22] MEDS: AMLODIPINE BESYLATE 5 MG TAB PO SCH (08:33)
[2019-07-22] MEDS: PATIENT'S OWN CONTROLLED MED PO SCH (08:34)
[2019-07-22] MEDS: FAMOTIDINE 20 MG TAB PO SCH (08:35)
[2019-07-22] MEDS: lisinopriL 40 MG TAB PO SCH (08:36)
[2019-07-22] MEDS: DOXYCYCLINE HYCLATE 100 MG in DEXTROSE 5% 100 ML IV SCH ×2 (08:36→20:35)
[2019-07-22] MEDS: ASPIRIN 81 MG ECTAB PO SCH (08:56)
[2019-07-22] MEDS ORDERED: cefTRIAXone SODIUM 2,000 MG in DEXTROSE 5% 50 ML IV SCH (09:00)
[2019-07-22] MEDS ORDERED: predniSONE 20 MG TAB PO SCH (09:00)
[2019-07-22] MEDS ORDERED: XOPENEX/ATROVENT 0.63mg/0.5MG NEB COMBO NEB SCH (09:00)
--- NOTE | 2019-07-22 11:48 | Pulmonary Consultation ---
Date of Consultation July 22, 2019 58-year-old white female was readmitted on to the hospitalist service on 07/19/2019. Patient has a past medical history of rheumatoid arthritis, significant tobacco abuse specifically 1 pack of cigarettes a day since age 11 and states he quit smoking at time of most recent discharge. She has cut down to 12 cigarettes daily. She has a history of essential hypertension as well as COPD. She has never required oxygen for home use and states that she insisted on being discharged from [facility] on 07/17/2019 after a 4 day hospital stay. She was treated for community-acquired pneumonitis and discharged on oral clindamycin. She gives no history of acute or chronic aspiration. Upon returning home she became progressively more dyspneic and unable to clear her chest of her congestion. And came back to the hospital. There was also question of pulmonary edema and consideration that she failed on clindamycin. Her O2 saturation was in the mid 70 percentile range on admission. She has penicillin allergy as she developed urticaria as a child. She denies hemoptysis at any time or pleuritic pain or significant hoarseness. Her weight has remained constant with fair appetite. Even prior to these current admissions she was becoming progressively more dyspneic. She has to navigate and a flight of steps to her apartment in the [facility] area and if carrying groceries or items she often has to stop to catch her breath. She moved from [place] 4 years ago. Usually gets a bout of bronchitis and the fall and spring and is prescribed an antibiotic and prednisone with usually good results and resolution of her symptoms. She uses a Combivent Respimat inhaler at home but does not have a nebulizer. She is on chronic methadone maintenance. She has a history of epistaxis anxiety and a history of von Willebrand's disease. She reportedly has a Symbicort inhaler at home but is unclear whether she is compliant with its usage. She was started on low-dose Lasix and her lisinopril was restarted because of hypertension. Her creatinine clearance appears to be adequate. She was supplemented with oxygen at 6 liters in the ER. ABGs on 07/19/2019 revealed a pH of 7.38 pCO2 55 and a PO2 of 50 reportedly on room air. Saturation was 84.6 percent. Sputum culture from 07/17/2019 grew out normal kika and blood cultures have been negative. CTA on 07/16/2019 was reviewed and there was evidence for segmental and subsegmental debris in the lower lobe airways with bronchial wall thickening. Mild upper lobe predominant centrilobular emphysema was noted with extensive peribronchovascular consolidation involving the left lower lobe and to an extent the right lower lobe. Reactive bilateral hilar lymph nodes were seen and mild cardiomegaly. No evidence for acute pulmonary thromboembolic disease. Chest x-ray on 07/19/2019 shows minimal bibasilar opacities perhaps slightly improved from previous films. Patient was sent home on prednisone and her white count yesterday was 26,000 with an H&H of 14 in 40 and there was a leftward shift. Urine for Legionella antigen was negative and serologies for influenza type a and B were negative. History of Present Illness Attending Physician: Donny Oteroorio Allergies Allergy/AdvReac Type Severity Reaction Status Date / Time bee venom protein (honey bee) Allergy Swelling Unverified 07/19/19 21:21 of Lip/Tongue/Throat Penicillins Allergy Hives Unverified 07/19/19 21:21 Home Medications Home Medications Medication Instructions Recorded Confirmed Type Combivent Respimat 2 puff INHALATION QID PRN #0 g 07/17/19 07/19/19 Rx aspirin 81 mg PO DAILY #30 tab 07/17/19 07/19/19 Rx budesonide-formoterol [Symbicort] 2 puff INHALATION BID PRN #6 gm 07/17/19 07/19/19 Rx clindamycin HCl 600 mg PO BID 6 Days #24 cap 07/17/19 07/19/19 Rx lisinopril 20 mg PO DAILY #0 tab 07/17/19 07/19/19 Rx prednisone 40 mg PO QAM #4 tab 07/17/19 07/19/19 Rx albuterol sulfate HFA 90 1 puffs INH Q6H PRN #6.7 gm 07/18/19 07/19/19 Rx mcg/actuation aerosol inhaler lorazepam 0.5 mg tablet 0.5 mg PO Q4H PRN tab 07/18/19 07/19/19 History methadone 40 mg soluble tablet 95 mg PO DAILY tab 07/18/19 07/19/19 History ondansetron HCl 4 mg tablet 4 mg PO QID PRN #10 tab 07/19/19 07/19/19 Rx Patient History Medical History Aspiration pneumonia (Acute) Anxiety Essential hypertension Tobacco abuse Left lower lobe pneumonia (Acute) There appears to be consolidative changes at the left lower lobe with mucus debris involving the segmental bronchi. While this could represent an acute on chronic aspiration pneumonia patient does not give a history of silent aspiration. Suspect she is just not clearing secretions well and remains bronchospastic. Patient was initially placed on IV cefepime and then switched to IV ceftriaxone and now on oral steroid dosing. I feel the cefepime selection was the correct course as we are now dealing with a healthcare associated pneumonitis. I suspect significant mucoid impaction and mucus plugging in this patient with severe emphysema and chronic mucopurulent bronchitis. A video swallow at some point would be helpful to know or least documented silent aspiration if it exists. Will increase the steroid dosing and changed back to IV cefepime and add percussion therapy as well. O2 supplementation will be required. COPD exacerbation (Acute) Patient has severe COPD and at least a 50-60 pack year habit. I do not think she has an endobronchial lesion or neoplasm but this cannot be ruled out entirely. Will see how she responds to therapy aggressive pulmonary toilet. 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 Beliefs That Will Affect Care: None Current Living Situation: Alone Other Information That Helps Us Care for You: No Feels Safe at Home: Yes Safety Concerns: Feels Safe At This Time Smoking Status: Current every day smoker Tobacco Type: cigarettes ; Cigarettes Per Day: 20 ; Do You Dip or Chew Tobacco: No ; Second Hand Exposure: No ; Tobacco Cessation Education Requested by Patient: No Hx Alcohol Use: Yes Hx Substance Use: No Review of Systems Review of Systems: All systems reviewed & are unremarkable except as noted in HPI & below Constitutional: no problem reported Eyes: no problem reported Ear, Nose, Mouth, Throat: no problem reported Respiratory: no problem reported Cardiovascular: no problem reported Gastrointestinal: no problem reported Genitourinary: no problem reported Musculoskeletal: no problem reported Integumentary: no problem reported Neurologic: no problem reported Psychiatric: no problem reported Endocrine: no problem reported Hematologic / Lymphatic: no problem reported Allergy / Immunological: no problem reported Physical Exam Constitutional: well developed and well nourished; no acute distress Eyes: PERRL, conjunctivae normal, anicteric sclerae ENMT: external ear and nose normal, oropharynx normal Neck: trachea midline, no thyromegaly Respiratory: normal respiratory effort, + hyperresonance to percussion, + prolonged expiratory phase and + audible wheezes (Coarse rhonchi and wheezing left base greater than right) Auscultation: lungs clear to auscultation bilaterally Cardiovascular: RRR, no murmur, no edema Palpation: normal PMI; no thrill Gastrointestinal (Abdomen): normal bowel sounds, soft, nontender, no hepatosplenomegaly Musculoskeletal: no cyanosis or clubbing, extremities motor strength 5/5 Gait: normal gait Skin: no rashes, warm and dry Neurologic: PERRL, EOMI, accommodation nl, no face palsy, no dysarthria Psychiatric: A+Ox3, euthymic affect Lymphatic: no cervical or axillary lymphadenopathy Results & Data Vital Signs (Past 12 Hours) Vital Signs Temp Pulse Resp BP Pulse Ox 07/22/19 11:22 90 20 90 07/22/19 07:36 36.5 C 68 17 168/81 H 96 07/22/19 07:28 73 18 96 07/22/19 01:16 67 18 98 07/22/19 00:20 36.8 C 64 18 159/79 H 96 PG Care Time/CCT Total # of Minutes Spent Total Time Spent with Patient: Total time spent is greater than 50% in coordination of care (as documented) at patient's floor/unit and/or counseling patient:
--- NOTE | 2019-07-22 12:07 | Pulmonary Consultation ---
Date of Consultation July 22, 2019 History of Present Illness Attending Physician: Donny Philip Allergies Allergy/AdvReac Type Severity Reaction Status Date / Time bee venom protein (honey bee) Allergy Swelling Unverified 07/19/19 21:21 of Lip/Tongue/Throat Penicillins Allergy Hives Unverified 07/19/19 21:21 Home Medications Home Medications Medication Instructions Recorded Confirmed Type Combivent Respimat 2 puff INHALATION QID PRN #0 g 07/17/19 07/19/19 Rx aspirin 81 mg PO DAILY #30 tab 07/17/19 07/19/19 Rx budesonide-formoterol [Symbicort] 2 puff INHALATION BID PRN #6 gm 07/17/19 07/19/19 Rx clindamycin HCl 600 mg PO BID 6 Days #24 cap 07/17/19 07/19/19 Rx lisinopril 20 mg PO DAILY #0 tab 07/17/19 07/19/19 Rx prednisone 40 mg PO QAM #4 tab 07/17/19 07/19/19 Rx albuterol sulfate HFA 90 1 puffs INH Q6H PRN #6.7 gm 07/18/19 07/19/19 Rx mcg/actuation aerosol inhaler lorazepam 0.5 mg tablet 0.5 mg PO Q4H PRN tab 07/18/19 07/19/19 History methadone 40 mg soluble tablet 95 mg PO DAILY tab 07/18/19 07/19/19 History ondansetron HCl 4 mg tablet 4 mg PO QID PRN #10 tab 07/19/19 07/19/19 Rx Patient History Medical History Anxiety Essential hypertension Tobacco abuse Left lower lobe pneumonia (Acute) COPD exacerbation (Acute) Acute respiratory failure with hypoxia (Acute) Epistaxis (Acute) Von Willebrand disease Surgical History No pertinent past surgical history Social History Preferred Language: Chinese Communication Ability: Effective Anesthesiologist And Critical Care Required: No Beliefs That Will Affect Care: None Current Living Situation: Alone Other Information That Helps Us Care for You: No Feels Safe at Home: Yes Safety Concerns: Feels Safe At This Time Smoking Status: Current every day smoker Tobacco Type: cigarettes ; Cigarettes Per Day: 20 ; Do You Dip or Chew Tobacco: No ; Second Hand Exposure: No ; Tobacco Cessation Education Requested by Patient: No Hx Alcohol Use: Yes Hx Substance Use: No Results & Data Vital Signs (Past 12 Hours) Vital Signs Temp Pulse Resp BP Pulse Ox 07/22/19 11:22 90 20 90 07/22/19 07:36 36.5 C 68 17 168/81 H 96 07/22/19 07:28 73 18 96 07/22/19 01:16 67 18 98 07/22/19 00:20 36.8 C 64 18 159/79 H 96 PG Care Time/CCT Total # of Minutes Spent Total Time Spent with Patient: Total time spent is greater than 50% in coordination of care (as documented) at patient's floor/unit and/or counseling patient:
[2019-07-22] MEDS: CEFEPIME 2,000 MG in SYRINGE 7.5 ML IV SCH ×2 (13:19→22:48)
[2019-07-22] MEDS: LORazepam 0.5 MG TAB PO PRN (20:43)
[2019-07-22] MEDS ORDERED: methylPREDNISolone 60 MG in SYRINGE 0 ML IV SCH (21:00)
[2019-07-22] MEDS ORDERED: predniSONE 20 MG TAB PO ONE (21:00)
--- NOTE | 2019-07-22 22:02 | Hospitalist Progress Note ---
Date of Service July 22, 2019 Assessment & Plan (1) Acute respiratory failure with hypoxia: Secondary to community/aspiration pneumonia with COPD exacerbation. Started after viral gastroenteritis causing vomiting. Wean O2 aim > 90% Patient continues to be wheezing. She does not appear to be in shortness of breath at this time. Agree with chest percussion. switched antibiotic to cefepime. Consulted pulmonary on 07/22 appreciate input (2) COPD exacerbation: Switch IV methylprednisone to 40mg prednisone daily Switch duoneb to levalbuterol/iptratropium to see if improves palpitations. Switch symbicort to flovent also to see if improves palpitations. Wash mouth out after use. (3) Left lower lobe pneumonia: Unclear failure of clindamycin given improved appearance on chest x-ray. However given re-admission with hypoxia will continue IV antibiotics until further clinical improvement. switched to cefepime on 07/22 to cover for possible hospital acquired infection. Continue lactobacillus (4) Essential hypertension: Hypertensive urgency without emergency. Increase lisinopril from 20 to 40 mg daily. Start amlodipine 10mg daily. Hydralazine 10 mg IV as needed every 4 hourly for systolic blood pressure greater than 180 or diastolic blood pressure greater than 110 (5) Hypertensive crisis: See above (6) Demand ischemia of myocardium: Very mild elevated troponin, repeat normal (7) Tobacco abuse: Counseled regarding tobacco cessation (8) DVT prophylaxis: Lovenox 40mg SQ daily Code - Full Dispo - continued inpatient stay due to hypoxia (readmission) Subjective 58 yo female actually feels improvement today. She says today is the best she has felt since admission. She does not feel like she is at baseline however. She states that she had chest percussion today, and feels that this likely helped. Review of Systems Review of Systems: All systems reviewed & are unremarkable except as noted in HPI & below Physical Exam Physical Exam: Constitutional: + thin; not in distress Eyes: + anicteric sclerae; no conjunctival abnormality and normal pupil size ENMT: external ear and nose normal, oropharynx normal Neck: normal visual inspection and trachea midline Respiratory: Auscultation: + wheezes (Expiratory diffusely on back (improved from prior day)); no diminished lung sounds, no crackles, no rales and no rhonchi Cardiovascular: RRR, no murmur, no edema Gastrointestinal (Abdomen): Inspection/Auscultation: abdomen normal to inspection; abdomen not distended Percussion/Palpation: + abdomen tender (Mild epigastric) and abdomen soft; no guarding and abdomen not rigid Musculoskeletal: no cyanosis or clubbing, extremities motor strength 5/5 Skin: no rashes, warm and dry Neurologic: moves all extremities and awake; no focal motor deficits Speech / Cognition: normal speech Motor/Sensory: no sensory deficit Psychiatric: A+Ox3, euthymic affect Results & Data Vital Signs (Past 12 Hours) Vital Signs Temp Pulse Pulse Resp BP Pulse Ox 07/22/19 19:59 78 18 95 07/22/19 15:27 36.5 C 82 17 130/74 97 07/22/19 15:06 81 18 94 07/22/19 11:22 90 20 90 PG Care Time/CCT Total # of Minutes Spent Total Time Spent with Patient: Total time spent is greater than 50% in coordination of care (as documented) at patient's floor/unit and/or counseling patient: (1) Left lower lobe pneumonia Pneumonia type: due to unspecified organism Qualified Code(s): J18.1 - Lobar pneumonia, unspecified organism
[2019-07-23] MEDS: CEFEPIME 2,000 MG in SYRINGE 7.5 ML IV SCH ×3 (05:45→21:20)
[2019-07-23] MEDS: IPRATROPIUM BROMIDE NEB SOLN 0.02% 2.5 ML VIAL INH SCH ×4 (07:08→19:27)
[2019-07-23] MEDS: LEVALBUTEROL HCL 0.63 MG/3 ML NEB NEB SCH ×4 (07:08→19:27)
[2019-07-23] MEDS: AMLODIPINE BESYLATE 5 MG TAB PO SCH (07:36)
[2019-07-23] MEDS: LACTOBACILLUS ACIDOPHILUS 1 GM PACK PO SCH ×3 (07:36→17:23)
[2019-07-23] MEDS: FAMOTIDINE 20 MG TAB PO SCH (07:37)
[2019-07-23] MEDS: lisinopriL 40 MG TAB PO SCH (07:37)
[2019-07-23] MEDS: ENOXAPARIN INJ 40 MG/0.4 ML SYR SQ SCH (07:38)
[2019-07-23] MEDS: ASPIRIN 81 MG ECTAB PO SCH (07:38)
[2019-07-23] MEDS: FLUTICASONE HFA 220 MCG INHALER INH SCH ×2 (07:40→20:19)
[2019-07-23] MEDS: METHADONE ORAL SOLN 2 MG/ML PO SCH (07:48)
[2019-07-23] MEDS: PATIENT'S OWN CONTROLLED MED PO SCH (07:49)
[2019-07-23] MEDS: DOXYCYCLINE HYCLATE 100 MG in DEXTROSE 5% 100 ML IV SCH (09:14)
[2019-07-23] MEDS: POLYETHYLENE (MIRALAX) 17 GM PACK PO PRN (09:30)
--- NOTE | 2019-07-23 17:04 | Pulmonology Progress Note ---
Date of Service July 23, 2019 Assessment & Plan (1) Demand ischemia of myocardium: (2) Hypertensive crisis: (3) Aspiration pneumonia: It is unclear whether this truly represents an aspiration pneumonia. Believe we can continue this current treatment plan and see how much better she gets. She may be looking at bronchoscopy with BAL if she plateaus without further improvement. I will see her on a daily basis and reassess. Aspiration pneumonia type: unspecified Laterality: unspecified laterality Lung location: unspecified part of lung Qualified Code(s): J69.0 - Pneumonitis due to inhalation of food and vomit (4) Hypoxia: (5) Tobacco abuse: (6) Left lower lobe pneumonia: Pneumonia type: due to unspecified organism Qualified Code(s): J18.1 - Lobar pneumonia, unspecified organism (7) COPD exacerbation: (8) Acute respiratory failure with hypoxia: Subjective 58-year-old white female who feels somewhat better today with less coughing and congestion and slept better last night. We have ordered chest percussion along with a flutter valve and a fairly intensive pulmonary regimen. She wants more reiterates to me that she has smoked her last cigarette. I did raise her steroid dosage yesterday. I did change her antibiotics back to IV cefepime given that she had a recent admission to [facility]. Hopefully she will continue to improve on current regimen. Review of Systems Constitutional: no problem reported Eyes: no problem reported Ear, Nose, Mouth, Throat: no problem reported Respiratory: no problem reported Cardiovascular: no problem reported Gastrointestinal: no problem reported Genitourinary: no problem reported Musculoskeletal: no problem reported Integumentary: no problem reported Neurologic: no problem reported Psychiatric: no problem reported Endocrine: no problem reported Hematologic / Lymphatic: no problem reported Allergy / Immunological: no problem reported Physical Exam Constitutional: well developed and well nourished; no acute distress Eyes: PERRL, conjunctivae normal, anicteric sclerae ENMT: external ear and nose normal, oropharynx normal Neck: trachea midline, no thyromegaly Respiratory: normal respiratory effort, + hyperresonance to percussion and + prolonged expiratory phase Auscultation: + wheezes (coarse wheezes bilaterally but less pronounced.) Cardiovascular: RRR, no murmur, no edema Palpation: normal PMI; no thrill Gastrointestinal (Abdomen): normal bowel sounds, soft, nontender, no hepatosplenomegaly Musculoskeletal: no cyanosis or clubbing, extremities motor strength 5/5 Gait: normal gait Skin: no rashes, warm and dry Neurologic: PERRL, EOMI, accommodation nl, no face palsy, no dysarthria Psychiatric: A+Ox3, euthymic affect Lymphatic: no cervical or axillary lymphadenopathy Results & Data Vital Signs (Past 12 Hours) Vital Signs Temp Pulse Pulse Resp BP BP Pulse Ox 07/23/19 16:12 91 07/23/19 15:35 36.4 C L 68 17 139/78 96 07/23/19 15:17 73 16 96 07/23/19 11:10 74 18 95 07/23/19 07:30 36.8 C 65 20 171/85 H 95 07/23/19 07:09 79 17 92 Laboratory Results Abnormal Labs 07/19/19 07/19/19 07/19/19 19:27 19:27 19:27 WBC 19.95 H Immature Gran # (Auto) 0.11 H Neut # (Auto) 14.52 H Lymph # (Auto) [place] # (Auto) 2.04 H VBG pCO2 55 H Potassium Carbon Dioxide BUN BUN/Creatinine Ratio Glucose 118 H AST Troponin I 0.089 H* Globulin 4.4 H Albumin/Globulin Ratio 0.8 L Lipase 29 L 07/19/19 07/20/19 07/20/19 20:53 06:03 06:03 WBC 19.81 H Immature Gran # (Auto) 0.08 H Neut # (Auto) 15.97 H Lymph # (Auto) [place] # (Auto) 1.07 H VBG pCO2 Potassium 3.2 L Carbon Dioxide 33 H BUN BUN/Creatinine Ratio 22.5 H Glucose 126 H AST 12 L Troponin I Globulin Albumin/Globulin Ratio Lipase 07/21/19 07/21/19 08:05 08:05 WBC 26.15 H Immature Gran # (Auto) 0.48 H Neut # (Auto) 19.74 H Lymph # (Auto) 3.87 H [place] # (Auto) 2.03 H VBG pCO2 Potassium Carbon Dioxide BUN 19 H BUN/Creatinine Ratio 26.4 H Glucose 107 H AST Troponin I Globulin Albumin/Globulin Ratio Lipase Medications Administered Current Inpatient Medications Acetaminophen (Tylenol) 650 mg PO Q4H PRN PRN Reason: Pain or Fever Stop: 08/18/19 22:12 Last Admin: 07/20/19 21:37 Dose: 650 mg Documented by: Albuterol (Combivent Respimat) 2 puffs INH QID PRN PRN Reason: Shortness Of Breath Or Wheezin Stop: 08/18/19 22:19 Albuterol (Ventolin Hfa) 1 puffs INH Q6H PRN PRN Reason: shortness of breath or wheezing Amlodipine Besylate (Norvasc) 10 mg PO QAM BALDOMERO Stop: 08/21/19 08:59 Last Admin: 07/23/19 07:36 Dose: 10 mg Documented by: Aspirin (Ecotrin Ectab) 81 mg PO DAILY BALDOMERO Stop: 08/19/19 08:59 Last Admin: 07/23/19 07:38 Dose: 81 mg Documented by: Enoxaparin Sodium (Lovenox) 40 mg SQ Q24H BALDOMERO Stop: 08/19/19 08:59 Last Admin: 07/23/19 07:38 Dose: 40 mg Documented by: Famotidine (Pepcid) 20 mg PO QAM BALDOMERO Stop: 08/19/19 15:29 Last Admin: 07/23/19 07:37 Dose: 20 mg Documented by: Fluticasone Propionate (Flovent Hfa 220mcg) 2 puffs INH BID BALDOMERO Stop: 08/20/19 20:59 Last Admin: 07/23/19 07:40 Dose: 2 puffs Documented by: Hydralazine HCl (Hydralazine Hcl) 10 mg IV Q4H PRN PRN Reason: Hypertension Stop: 08/19/19 19:27 Last Admin: 07/21/19 12:01 Dose: 10 mg Documented by: Methylprednisolone 60 mg/ (Syringe) 0.96 mls @ 1.5 mls/min IV BID BALDOMERO Stop: 08/21/19 20:59 Cefepime HCl 2,000 mg/ Syringe 20 mls @ 5.5 mls/min IV Q8H [facility]; Protocol Stop: 07/29/19 13:59 Last Admin: 07/23/19 13:26 Dose: 5.5 mls/min Documented by: Ipratropium [place] (Atrovent 0.02% 0.5mg/2.5ml) 0.5 mg INH QIDR BALDOMERO Stop: 08/21/19 00:14 Last Admin: 07/23/19 15:15 Dose: 0.5 mg Documented by: Lactobacillus Acidophilus (Floranex Granules/Powder Packet) 1 gm PO TIDM BALDOMERO Stop: 08/19/19 07:59 Last Admin: 07/23/19 12:23 Dose: 1 gm Documented by: Levalbuterol HCl (Xopenex 0.63 Mg/3 Ml Neb) 0.63 mg NEB QIDR BALDOMERO Stop: 08/21/19 06:59 Last Admin: 07/23/19 15:15 Dose: 0.63 mg Documented by: Lisinopril (Zestril) 40 mg PO DAILY BALDOMERO Stop: 08/20/19 08:59 Last Admin: 07/23/19 07:37 Dose: 40 mg Documented by: Lorazepam (Ativan) 0.5 mg PO Q4H PRN PRN Reason: anxiety Stop: 08/18/19 22:19 Last Admin: 07/22/19 20:43 Dose: 0.5 mg Documented by: Methadone HCl (Methadone Hcl) 95 mg PO DAILY [facility]; Protocol Stop: 08/19/19 08:59 Last Admin: 07/23/19 07:48 Dose: 95 mg Documented by: Non-Formulary Medication (Patient's Own Controlled Med) 1 ea PO DAILY BALDOMERO Stop: 08/03/19 08:59 Last Admin: 07/23/19 07:49 Dose: Not Given Documented by: Polyethylene Glycol (Miralax Powder Packet) 17 gm PO DAILY PRN PRN Reason: Constipation Stop: 08/18/19 22:12 Last Admin: 07/23/19 09:30 Dose: 17 gm Documented by: Zolpidem Tartrate (Ambien) 5 mg PO HS PRN PRN Reason: Sleep Stop: 08/18/19 22:12 PG Care Time/CCT Total # of Minutes Spent Total Time Spent with Patient: Total time spent is greater than 50% in coordination of care (as documented) at patient's floor/unit and/or counseling patient:
--- NOTE | 2019-07-23 22:48 | Hospitalist Progress Note ---
Date of Service July 23, 2019 Assessment & Plan (1) Acute respiratory failure with hypoxia: Secondary to community/aspiration pneumonia with COPD exacerbation. Started after viral gastroenteritis causing vomiting. Wean O2 aim > 90% Patient continues to be wheezing. She does not appear to be in shortness of breath at this time. Agree with chest percussion. switched antibiotic to cefepime. Consulted pulmonary on 07/22 appreciate input Patient will likely be discharged on 07/25. Will continue to monitor for now. (2) COPD exacerbation: Switch IV methylprednisone to 40mg prednisone daily Switch duoneb to levalbuterol/iptratropium to see if improves palpitations. Switch symbicort to flovent also to see if improves palpitations. Wash mouth out after use. (3) Left lower lobe pneumonia: Unclear failure of clindamycin given improved appearance on chest x-ray. However given re-admission with hypoxia will continue IV antibiotics until further clinical improvement. switched to cefepime on 07/22 to cover for possible hospital acquired infection. Continue lactobacillus (4) Essential hypertension: Hypertensive urgency without emergency. Increase lisinopril from 20 to 40 mg daily. Start amlodipine 10mg daily. Hydralazine 10 mg IV as needed every 4 hourly for systolic blood pressure greater than 180 or diastolic blood pressure greater than 110 (5) Hypertensive crisis: See above (6) Demand ischemia of myocardium: Very mild elevated troponin, repeat normal (7) Tobacco abuse: Counseled regarding tobacco cessation (8) DVT prophylaxis: Lovenox 40mg SQ daily Code - Full Dispo - continued inpatient stay due to hypoxia (readmission) Subjective Patient again reports feeling better. Patient has no new complaints. She states her breathing has continued to improve. Review of Systems Review of Systems: All systems reviewed & are unremarkable except as noted in HPI & below Physical Exam Physical Exam: Constitutional: + thin; not in distress Eyes: + anicteric sclerae; no conjunctival abnormality and normal pupil size ENMT: external ear and nose normal, oropharynx normal Neck: normal visual inspection and trachea midline Respiratory: Auscultation: decreased wheezing, no diminished lung sounds, no crackles, no rales and no rhonchi Cardiovascular: RRR, no murmur, no edema Gastrointestinal (Abdomen): Inspection/Auscultation: abdomen normal to inspection; abdomen not distended Percussion/Palpation: + abdomen tender (Mild epigastric) and abdomen soft; no guarding and abdomen not rigid Musculoskeletal: no cyanosis or clubbing, extremities motor strength 5/5 Skin: no rashes, warm and dry Neurologic: moves all extremities and awake; no focal motor deficits Speech / Cognition: normal speech Motor/Sensory: no sensory deficit Psychiatric: A+Ox3, euthymic affect Results & Data Vital Signs (Past 12 Hours) Vital Signs Temp Pulse Pulse Resp BP Pulse Ox 07/23/19 20:36 72 16 95 07/23/19 16:12 91 07/23/19 15:35 36.4 C L 68 17 139/78 96 07/23/19 15:17 73 16 96 07/23/19 11:10 74 18 95 PG Care Time/CCT Total # of Minutes Spent Total Time Spent with Patient: Total time spent is greater than 50% in coordination of care (as documented) at patient's floor/unit and/or counseling patient: (1) Left lower lobe pneumonia Pneumonia type: due to unspecified organism Qualified Code(s): J18.1 - Lobar pneumonia, unspecified organism
[2019-07-23] MEDS: ACETAMINOPHEN 325 MG TAB PO PRN (23:55)
[2019-07-24] MEDS: CEFEPIME 2,000 MG in SYRINGE 7.5 ML IV SCH ×3 (05:30→16:52)
[2019-07-24] MEDS: IPRATROPIUM BROMIDE NEB SOLN 0.02% 2.5 ML VIAL INH SCH ×4 (07:09→19:49)
[2019-07-24] MEDS: LEVALBUTEROL HCL 0.63 MG/3 ML NEB NEB SCH ×4 (07:09→19:49)
[2019-07-24] MEDS: LACTOBACILLUS ACIDOPHILUS 1 GM PACK PO SCH ×3 (07:46→17:07)
[2019-07-24] MEDS: FLUTICASONE HFA 220 MCG INHALER INH SCH ×2 (07:47→20:32)
[2019-07-24] MEDS: ASPIRIN 81 MG ECTAB PO SCH (07:47)
[2019-07-24] MEDS: METHADONE ORAL SOLN 2 MG/ML PO SCH (07:48)
[2019-07-24] MEDS: AMLODIPINE BESYLATE 5 MG TAB PO SCH (07:48)
[2019-07-24] MEDS: FAMOTIDINE 20 MG TAB PO SCH (07:49)
[2019-07-24] MEDS: PATIENT'S OWN CONTROLLED MED PO SCH (07:49)
[2019-07-24] MEDS: lisinopriL 40 MG TAB PO SCH (07:50)
[2019-07-24] MEDS: ENOXAPARIN INJ 40 MG/0.4 ML SYR SQ SCH (07:51)
[2019-07-24] MEDS: POLYETHYLENE (MIRALAX) 17 GM PACK PO PRN (07:53)
--- NOTE | 2019-07-24 13:43 | Pulmonology Progress Note ---
Date of Service July 24, 2019 Assessment & Plan (1) Demand ischemia of myocardium: (2) Hypertensive crisis: (3) Aspiration pneumonia: Patient continues to improve and would continue to taper steroid therapy and continuing her IV cefepime till discharge possibly tomorrow. She will need to be seen in our clinic within 2 weeks for follow-up and will hold on bronchoscopic intervention at this point time given significant improvement. Will check chest x-ray today. Aspiration pneumonia type: unspecified Laterality: unspecified laterality Lung location: unspecified part of lung Qualified Code(s): J69.0 - Pneumonitis due to inhalation of food and vomit (4) Hypoxia: (5) Essential hypertension: (6) Tobacco abuse: (7) Left lower lobe pneumonia: Pneumonia type: due to unspecified organism Qualified Code(s): J18.1 - Lobar pneumonia, unspecified organism (8) COPD exacerbation: (9) Acute respiratory failure with hypoxia: Subjective 58-year-old white female admitted on 07/19/2019 for acute on chronic hypoxic and hypercarbic respiratory failure and possible aspiration pneumonia and long- standing smoking history with severe COPD seems improved today with much less coughing and dyspnea and with extensive pulmonary toilet is now producing some phlegm at bedside. She is tolerating physical therapy and slept well last night. Review of Systems Constitutional: no problem reported Eyes: no problem reported Ear, Nose, Mouth, Throat: no problem reported Respiratory: no problem reported Cardiovascular: no problem reported Gastrointestinal: no problem reported Genitourinary: no problem reported Musculoskeletal: no problem reported Integumentary: no problem reported Neurologic: no problem reported Psychiatric: no problem reported Endocrine: no problem reported Hematologic / Lymphatic: no problem reported Allergy / Immunological: no problem reported Physical Exam Constitutional: well developed and well nourished; no acute distress Eyes: PERRL, conjunctivae normal, anicteric sclerae ENMT: external ear and nose normal, oropharynx normal Neck: trachea midline, no thyromegaly Respiratory: normal respiratory effort, + hyperresonance to percussion and + prolonged expiratory phase Auscultation: + crackles and + wheezes (Musical wheezes bilaterally but much less pronounced) Cardiovascular: RRR, no murmur, no edema Palpation: normal PMI; no thrill Gastrointestinal (Abdomen): normal bowel sounds, soft, nontender, no hepatosplenomegaly Musculoskeletal: no cyanosis or clubbing, extremities motor strength 5/5 Gait: normal gait Skin: no rashes, warm and dry Neurologic: PERRL, EOMI, accommodation nl, no face palsy, no dysarthria Psychiatric: A+Ox3, euthymic affect Lymphatic: no cervical or axillary lymphadenopathy Results & Data Vital Signs (Past 12 Hours) Vital Signs Temp Pulse Resp BP BP Pulse Ox 07/24/19 12:10 36.5 C 61 20 128/78 90 07/24/19 11:03 80 16 92 07/24/19 07:34 36.9 C 62 20 165/93 H 165/91 H 98 07/24/19 07:10 72 15 93 Laboratory Results Abnormal Labs 07/19/19 07/19/19 07/19/19 19:27 19:27 19:27 WBC 19.95 H Immature Gran # (Auto) 0.11 H Neut # (Auto) 14.52 H Lymph # (Auto) [place] # (Auto) 2.04 H VBG pCO2 55 H Potassium Carbon Dioxide BUN BUN/Creatinine Ratio Glucose 118 H AST Troponin I 0.089 H* Globulin 4.4 H Albumin/Globulin Ratio 0.8 L Lipase 29 L 07/19/19 07/20/19 07/20/19 20:53 06:03 06:03 WBC 19.81 H Immature Gran # (Auto) 0.08 H Neut # (Auto) 15.97 H Lymph # (Auto) [place] # (Auto) 1.07 H VBG pCO2 Potassium 3.2 L Carbon Dioxide 33 H BUN BUN/Creatinine Ratio 22.5 H Glucose 126 H AST 12 L Troponin I Globulin Albumin/Globulin Ratio Lipase 07/21/19 07/21/19 08:05 08:05 WBC 26.15 H Immature Gran # (Auto) 0.48 H Neut # (Auto) 19.74 H Lymph # (Auto) 3.87 H [place] # (Auto) 2.03 H VBG pCO2 Potassium Carbon Dioxide BUN 19 H BUN/Creatinine Ratio 26.4 H Glucose 107 H AST Troponin I Globulin Albumin/Globulin Ratio Lipase PG Care Time/CCT Total # of Minutes Spent Total Time Spent with Patient: Total time spent is greater than 50% in coordination of care (as documented) at patient's floor/unit and/or counseling patient:
[2019-07-24] MEDS ORDERED: cefUROXime axetil 250 MG TABLET PO ONE (14:08)
--- NOTE | 2019-07-24 14:29 | XRay Report ---
XR chest 2V routine HISTORY: Follow-up left lower lobe pneumonia. COMPARISON: Chest 07/19/2019. FINDINGS: No pneumothorax. No pleural effusions. The heart remains borderline enlarged. Levoscoliosis of the thoracic spine persists. No evidence for pulmonary edema. Slight improved aeration within the patchy bibasilar densities. No new focal lung consolidations. IMPRESSION: Improved aeration within the patchy bibasilar densities. No new focal lung consolidations. Electronically signed by: Yosi Perez M.D. 07/24/2019 2:27 PM
[2019-07-24] MEDS ORDERED: FAMOTIDINE 20 MG TAB PO ONE (18:18)
[2019-07-24] MEDS: cefUROXime axetil 500 MG TAB PO SCH (19:49)
--- NOTE | 2019-07-24 22:58 | Hospitalist Progress Note ---
Date of Service July 24, 2019 Assessment & Plan (1) Acute respiratory failure with hypoxia: Secondary to community/aspiration pneumonia with COPD exacerbation. Started after viral gastroenteritis causing vomiting. Wean O2 aim > 90% Patient continues to be wheezing. She does not appear to be in shortness of breath at this time. Agree with chest percussion. switched antibiotic to cefepime. IV line blew and switched to augmentin on 07/24 Consulted pulmonary on 07/22 appreciate input Chest percussions likely helped as well. Recommend no smoking as this will worsen her breathing. Patient will likely be discharged on 07/25. Will continue to monitor for now. (2) COPD exacerbation: Switch IV methylprednisone to 40mg prednisone daily Switch duoneb to levalbuterol/iptratropium to see if improves palpitations. Switch symbicort to flovent also to see if improves palpitations. Wash mouth out after use. (3) Left lower lobe pneumonia: Unclear failure of clindamycin given improved appearance on chest x-ray. However given re-admission with hypoxia will continue IV antibiotics until further clinical improvement. switched to cefepime on 07/22 to cover for possible hospital acquired infection. Continue lactobacillus (4) Essential hypertension: Hypertensive urgency without emergency. Increase lisinopril from 20 to 40 mg daily. Start amlodipine 10mg daily. Hydralazine 10 mg IV as needed every 4 hourly for systolic blood pressure greater than 180 or diastolic blood pressure greater than 110 (5) Hypertensive crisis: See above (6) Demand ischemia of myocardium: Very mild elevated troponin, repeat normal (7) Tobacco abuse: Counseled regarding tobacco cessation (8) DVT prophylaxis: Lovenox 40mg SQ daily Code - Full Dispo - continued inpatient stay due to hypoxia (readmission) Subjective 58 yo female reports feeling well. She is breathing better and is close to baseline. She is still coughing but it has decreased in intensity. Review of Systems Review of Systems: All systems reviewed & are unremarkable except as noted in HPI & below Physical Exam Physical Exam: Constitutional: + thin; not in distress Eyes: + anicteric sclerae; no conjunctival abnormality and normal pupil size ENMT: external ear and nose normal, oropharynx normal Neck: normal visual inspection and trachea midline Respiratory: Auscultation: decreased wheezing, no diminished lung sounds, no crackles, no rales and no rhonchi Cardiovascular: RRR, no murmur, no edema Gastrointestinal (Abdomen): Inspection/Auscultation: abdomen normal to inspection; abdomen not distended Percussion/Palpation: + abdomen tender (Mild epigastric) and abdomen soft; no guarding and abdomen not rigid Musculoskeletal: no cyanosis or clubbing, extremities motor strength 5/5 Skin: no rashes, warm and dry Neurologic: moves all extremities and awake; no focal motor deficits Speech / Cognition: normal speech Motor/Sensory: no sensory deficit Psychiatric: A+Ox3, euthymic affect Results & Data Vital Signs (Past 12 Hours) Vital Signs Temp Pulse Resp BP BP Pulse Ox 07/24/19 19:53 64 16 92 07/24/19 19:10 36.8 C 65 16 160/78 H 92 07/24/19 16:39 36.7 C 66 19 149/82 H 90 07/24/19 15:10 72 15 92 07/24/19 12:10 36.5 C 61 20 128/78 90 07/24/19 11:03 80 16 92 PG Care Time/CCT Total # of Minutes Spent Total Time Spent with Patient: Total time spent is greater than 50% in coor dination of care (as documented) at patient's floor/unit and/or counseling patient: (1) Left lower lobe pneumonia Pneumonia type: due to unspecified organism Qualified Code(s): J18.1 - Lobar pneumonia, unspecified organism
[2019-07-25] MEDS: POLYETHYLENE (MIRALAX) 17 GM PACK PO PRN (06:07)
[2019-07-25] MEDS: LEVALBUTEROL HCL 0.63 MG/3 ML NEB NEB SCH ×2 (07:10→10:49)
[2019-07-25] MEDS: IPRATROPIUM BROMIDE NEB SOLN 0.02% 2.5 ML VIAL INH SCH ×2 (07:10→10:48)
[2019-07-25 07:33] VITALS: TEMP 98.1
[2019-07-25] MEDS: METHADONE ORAL SOLN 2 MG/ML PO SCH (08:33)
[2019-07-25] MEDS: lisinopriL 40 MG TAB PO SCH (08:34)
[2019-07-25] MEDS: FAMOTIDINE 20 MG TAB PO SCH (08:34)
[2019-07-25] MEDS: ASPIRIN 81 MG ECTAB PO SCH (08:34)
[2019-07-25] MEDS: LACTOBACILLUS ACIDOPHILUS 1 GM PACK PO SCH ×2 (08:34→11:29)
[2019-07-25] MEDS: ENOXAPARIN INJ 40 MG/0.4 ML SYR SQ SCH (08:35)
[2019-07-25] MEDS: FLUTICASONE HFA 220 MCG INHALER INH SCH (08:35)
[2019-07-25] MEDS: PATIENT'S OWN CONTROLLED MED PO SCH (08:35)
[2019-07-25] MEDS: AMLODIPINE BESYLATE 5 MG TAB PO SCH (08:35)
[2019-07-25] MEDS: cefUROXime axetil 500 MG TAB PO SCH (09:02)
[2019-07-25 10:49] VITALS: O2SAT 94
[2019-07-25 13:16] VITALS: BP 128/78; PULSE 66
--- NOTE | 2019-08-05 08:05 | Discharge Summary ---
Date of Service July 25, 2019 Principal Diagnosis Aspiration Pneumonia with COPD exacerbation Discharge Exam Constitutional: + thin; not in distress Eyes: + anicteric sclerae; no conjunctival abnormality and normal pupil size ENMT: external ear and nose normal, oropharynx normal Neck: normal visual inspection and trachea midline Respiratory: Auscultation: decreased wheezing, no diminished lung sounds, no crackles, no rales and no rhonchi Cardiovascular: RRR, no murmur, no edema Gastrointestinal (Abdomen): Inspection/Auscultation: abdomen normal to inspection; abdomen not distended Percussion/Palpation: nontender, and abdomen soft; no guarding and abdomen not rigid Musculoskeletal: no cyanosis or clubbing, extremities motor strength 5/5 Skin: no rashes, warm and dry Neurologic: moves all extremities and awake; no focal motor deficits Speech / Cognition: normal speech Motor/Sensory: no sensory deficit Psychiatric: A+Ox3, euthymic affect Discharge Data Allergies Allergy/AdvReac Type Severity Reaction Status Date / Time bee venom protein (honey bee) Allergy Swelling Unverified 08/01/19 11:35 of Lip/Tongue/Throat Penicillins Allergy Hives Unverified 08/01/19 11:35 Consultations 07/19/19 21:01 ED Decision to Admit Stat 07/22/19 09:50 Consult Pulmonology Routine Hospital Course (1) Acute respiratory failure with hypoxia: Secondary to community/aspiration pneumonia with COPD exacerbation. Started after viral gastroenteritis causing vomiting. Wean O2 aim > 90% Patient continues to be wheezing. She does not appear to be in shortness of breath at this time. Agree with chest percussion. switched antibiotic to cefepime. IV line blew and switched to augmentin on 07/24 Consulted pulmonary on 07/22 appreciate input Chest percussions likely helped as well. Recommend no smoking as this will worsen her breathing. Patient improved and will be discharged on 07/25. (2) COPD exacerbation: Switch IV methylprednisone to 40mg prednisone daily Switch duoneb to levalbuterol/iptratropium to see if improves palpitations. Switch symbicort to flovent also to see if improves palpitations. Wash mouth out after use. (3) Left lower lobe pneumonia: Unclear failure of clindamycin given improved appearance on chest x-ray. However given re-admission with hypoxia will continue IV antibiotics until further clinical improvement. switched to cefepime on 07/22 to cover for possible hospital acquired infection. Continue lactobacillus (4) Essential hypertension: Hypertensive urgency without emergency. Increase lisinopril from 20 to 40 mg daily. Start amlodipine 10mg daily. Hydralazine 10 mg IV as needed every 4 hourly for systolic blood pressure greater than 180 or diastolic blood pressure greater than 110 (5) Hypertensive crisis: See above (6) Demand ischemia of myocardium: Very mild elevated troponin, repeat normal (7) Tobacco abuse: Counseled regarding tobacco cessation (8) DVT prophylaxis: Lovenox 40mg SQ daily Code - Full Total Time Total Time Spent Total Time Spent (In Minutes): 31 Total Time Includes: Examination of the Patient, Discharge Planning and Medication Reconciliation Discharge Plan Discharge Items Patient Disposition: Home - Self-Care Reason For Visit: HYPOXIA Discharge Diagnosis: COPD exacerbation Activity: Resume your previous activity Non-emergency contact: Primary Care Provider Call non-emergency contact if: you have any medication questions Follow-up/Referrals: Krystle Quinteros MD [Primary Care Provider] - 08/01/19 11:30 am (A follow up appt. was made for you with Dr. Quinteros on 08/01 at 11:30am.) Katie Vela CRNP [Nurse Practitioner] - 07/31/19 11:00 am (A follow up appt. 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 Will schedule a followup appointment with your PCP and Pulmonary Pending Studies at Discharge: No Stand-Alone Forms: My [facility] Medications and DC Order Prescriptions: New amlodipine [Norvasc] 5 mg Tablet 10 mg PO QAM Qty: 30 RF: 0 famotidine 20 mg Tablet 20 mg PO QAM Qty: 10 RF: 0 Floranex 100 million cell Granules In Packet 1 g PO TIDM Qty: 90 RF: 0 Continued ondansetron HCl [Zofran] 4 mg tablet 4 mg PO QID PRN (Reason: nausea and vomiting) Qty: 10 RF: 0 lorazepam 0.5 mg tablet 0.5 mg PO Q4H PRN (Reason: anxiety) RF: 0 methadone 40 mg tablet,soluble 95 mg PO DAILY RF: 0 albuterol sulfate [ProAir HFA] 90 mcg/actuation HFA aerosol inhaler 1 puffs INH Q6H PRN (Reason: shortness of breath or wheezing) Qty: 6.7 RF: 0 aspirin 81 mg tablet,delayed release (DR/EC) 81 mg PO DAILY Qty: 30 RF: 0 Combivent Respimat 20-100 mcg/actuation Mist 2 puff INHALATION QID PRN (Reason: Shortness Of Breath Or Wheezing) Qty: 0 RF: 0 No Action lisinopril 10 mg tablet 20 mg PO DAILY Qty: 30 RF: 2 Discharge Orders: Discharge Order (Routine); Ordered 07/25/19 Ordered By: Donny Philip Admission Data Admit Date/Time: 07/19/19 22:13 Attending Provider: Donny Philip Admit Provider: Alessandra Tomlin Primary Care Provider: Krystle Quinteros Other Providers: Alessandra Tomlin ; Gabe Fleming Other Interventions: Discharge Summary Assessment (RN) Last Done: 07/25/19 13:15 DC Date/Time DO NOT enter until pt leaves facility: 07/25/19 14:40
== END 2019-07-25 14:40 | disposition home or self-care (01) | DRG 177 ==
LOC: ED 18:30 → SUATTDRO 22:13 → 2S 22:13 → 2N 07-20 19:36